=== PATIENT | female | born 1970 | race Caucasian/White ===

== ENCOUNTER 2017-06-02 15:30 | Emergency (ER) | payer OTHER ==
[2017-06-02 15:42] VITALS: RESP 20; TEMP 97.9
[2017-06-02] MEDS ORDERED: RX INFO: IV CONTRAST WAS GIVEN 1 EACH MISC MISCELLANE PRN (16:02)
[2017-06-02 16:18] LABS: Basophils # (A) 0.1 k/uL (0-0.2); Basophils % (A) 1 %; CHCM 33.8; Eosinophils # (A) 0.7 k/uL (0-0.7); Eosinophils % (A) 4 %; HCT 40.9 % (34.0-46.0); HDW 2.52; HGB 13.4 gm/dL (11.4-16.0); Luc # (Auto) 0.44; Luc % (Auto) 3; Lymphocytes # (A) 6.6 k/uL (1.0-4.8); Lymphocytes % (A) 44 %; MCH 30.2 pg (25.0-35.0); MCHC 32.8 g/dL (31.0-37.0); MCV 92.3 fL (80.0-100.0); Mean Platelet Volume 6.9; Monocytes # (A) 0.8 k/uL (0-1.0); Monocytes % (A) 5 %; Neutrophils # (A) 6.6 k/uL (1.3-7.7); Neutrophils % (A) 44 %; RBC 4.43 m/uL (3.80-5.40); RDW 14.2 % (11.5-15.5); WBC 15.2 k/uL (3.8-10.6); WBC (Perox) 14.95
--- NOTE | 2017-06-02 16:19 | ED ---
Syncope HPI - General Chief Complaint: Syncope Stated Complaint: NAUSEA, POST OP LEFT SHOULDER INJURY Source: EMS Mode of arrival: EMS Limitations: no limitations - History of Present Illness Initial Comments: Patient is a 47 year old female who presents for evaluation for questionable syncopal episode, nausea, vomiting, dizziness and weakness. Past medical history as below. Patient had a rotator cuff procedure this past Saturday with Dr. Irving in an out-patient surgical center. Stated that the surgery went well. She's been taking [place] one to 2 tablets every 6 hours as need for pain. On Saturday night she did well. She slept well overnight. Saturday she stated that she was doing okay. But around 1 PM was more tired and was resting throughout the day. She is taking antibiotics, full 325 mg aspirin and the O'[place]on as prescribed. Today she seems a little bit more groggy than usual. She stated that she felt dizzy and lightheaded. Seem to be a little off balance. This afternoon she slumped over and then straightened out. ? convulsions per the pt's . No history of seizures in the past. EMS was called and they transported her to our facility for further evaluation. She has no history of blood clots or PE's. Was cleared prior to surgery. States that she is nauseous right now and had a couple episodes of emesis. Currently denies fevers , shortness of breath, cough, chest pain, diarrhea, pain or burning with urination. - Related Data Home Medications Medication Instructions Recorded Confirmed Aspirin EC [Ecotrin] 325 mg PO DAILY 06/02/17 06/02/17 Cetirizine HCl [Zyrtec] 10 mg PO HS 06/02/17 06/02/17 Doxycycline Hyclate [Vibramycin] 100 mg PO Q12H 06/02/17 06/02/17 Fenofibrate 160 mg PO HS 06/02/17 06/02/17 HYDROcodone/APAP 7.5-325MG [[place] 1 tab PO Q4H PRN 06/02/17 06/02/17 7.5-325] HYDROcodone/APAP 7.5-325MG [[place] 2 tab PO Q4H PRN 06/02/17 06/02/17 7.5-325] Allergies Allergy/AdvReac Type Severity Reaction Status Date / Time Sulfa (Sulfonamide Allergy Rash/Hives/ Verified 06/02/17 16:07 Antibiotics) Swelling Review of Systems ROS Statement: Those systems with pertinent positive or pertinent negative responses have been documented in the HPI. ROS Other: All systems not noted in ROS Statement are negative. Past Medical History Past Medical History: No Reported History History of Any Multi-Drug Resistant Organisms: None Reported Past Surgical History: Orthopedic Surgery Additional Past Surgical History / Comment(s): left shoulder Past Psychological History: No Psychological Hx Reported Smoking Status: Never smoker Past Alcohol Use History: None Reported General Exam Limitations: no limitations General appearance: alert, in no apparent distress, other (Appears sleepy.) Head exam: Present: atraumatic, normocephalic, normal inspection Eye exam: Present: normal appearance, PERRL, EOMI. Absent: scleral icterus, conjunctival injection, periorbital swelling ENT exam: Present: normal exam, mucous membranes moist, other (Moist mucous membranes) Neck exam: Present: normal inspection. Absent: tenderness, meningismus, lymphadenopathy Respiratory exam: Present: normal lung sounds bilaterally, other (Breath sounds bilaterally are equal. No wheezes rales or rhonchi.). Absent: respiratory distress, wheezes, rales, rhonchi, stridor Cardiovascular Exam: Present: regular rate, normal rhythm, normal heart sounds, other (Normal S1 and S2. No murmurs. Distal pulses intact. Warm extremities.) . Absent: systolic murmur, diastolic murmur, rubs, gallop, clicks GI/Abdominal exam: Present: soft, normal bowel sounds, other (Abdomen is soft and nontender. Negative Irving sign. No peritoneal signs.). Absent: distended , tenderness, guarding, rebound, rigid Extremities exam: Present: normal inspection, full ROM, normal capillary refill , other (Evidence of surgical changes to the left shoulder. No cellulitis or swelling. Distal pulses intact. Sensation intact.). Absent: tenderness, pedal edema, joint swelling, calf tenderness Back exam: Present: normal inspection Neurological exam: Present: alert, oriented X3, CN II-XII intact, other (Alert and oriented 3. Cranial nerves II through XII grossly intact without focal neurological deficits. Moves all 4 extremity is.) Psychiatric exam: Present: normal affect, normal mood Skin exam: Present: warm, dry, intact, normal color. Absent: rash Course Vital Signs 06/02/17 06/02/17 06/02/17 15:33 15:42 15:43 Temperature 97.9 F Pulse Rate 63 68 Respiratory 20 20 Rate Blood Pressure 123/73 123/73 O2 Sat by Pulse 89 L 98 98 Oximetry 06/02/17 06/02/17 16:44 17:30 Temperature Pulse Rate 67 71 Respiratory 20 20 Rate Blood Pressure 130/74 144/74 O2 Sat by Pulse 100 98 Oximetry Medical Decision Making - Medical Decision Making Patient is a 47 year old female present for evaluation for nausea vomiting, lightheaded/groggy, questional syncopal versus seizure. High risk for pulmonary embolism with recent surgical procedure. She was hypoxic on initial exam at 89% room air. Improved with 2 L nasal cannula. We'll order CTA chest. We'll also order basic labs with a troponin. EKG. CT head. 1558: Normal sinus rhythm. Rate of 62. OH 176. QRS 84. QTc 4:30. Questionable ST changes and V1 to V6. No reciprocal changes. Believe it's due to artifact. No active chest pain at this time. We'll repeat 1606: Repeat EKG revealed sinus bradycardia at a rate of 57. OH 178. QRS 92. QTc 436. No ST changes. 1715: Reevaluated the patient. She states that she is much improved. Removed from oxygen and she is 100% on room air. Reviewed her laboratory studies. Leukocytosis at 15,000. Mild DENIS. Respiratory laboratory studies within normal limits. Awaiting urinalysis. CTA of the chest was negative. Did have some atelectasis. No pneumonia. No PE. CT head was also unremarkable. I discussed with the patient. Will await urinalysis. Continue to closely monitor. 1815: Reviewed all laboratory studies and imaging with the patient and family members at bedside. Also recanted the story in its entirety. The patient states that she feels much improved from when she first came in. She has no pulmonary embolism. CT head was unremarkable. She had mild leukocytosis and mild elevation in her BUN and creatinine. No urinary tract infection. The rest of her laboratory studies were within normal limits. HEART Score 2. She states that she feels well enough to go home. At this time, I believe her symptoms were related to narcotics. She stated that she took 10 mg of O'[place]on last night and 10 mg of O'[place]on this morning. She is opiate alex. Her symptoms greatly improved during the course of her ER visit. However I discussed the limitations of our evaluation in the emergency department. Therefore, I offered observation. The patient refused. She states that she is going to see her orthopedic surgeon tomorrow. In the interim, I recommended taking only Tylenol or 2.5 mg O'[place]on every 6-8 hours. She voiced understanding. She will not exceed 4 g of Tylenol. Again she reiterated that she feels comfortable going home. I discussed specific signs and symptoms on when to return to the emergency department for further evaluation. Voiced understanding. Will follow -up with orthopedics tomorrow. - Lab Data Result diagrams: 06/02/17 15:48 06/02/17 15:48 Lab Results 06/02/17 06/02/17 06/02/17 Range/Units 15:48 15:48 15:48 WBC 15.2 H (3.8-10.6) k/uL RBC 4.43 (3.80-5.40) m/uL Hgb 13.4 (11.4-16.0) gm/dL Hct 40.9 (34.0-46.0) % MCV 92.3 (80.0-100.0) fL MCH 30.2 (25.0-35.0) pg MCHC 32.8 (31.0-37.0) g/dL RDW 14.2 (11.5-15.5) % Plt Count 482 H (150-450) k/uL Neutrophils % 44 % Lymphocytes % 44 % Monocytes % 5 % Eosinophils % 4 % Basophils % 1 % Neutrophils # 6.6 (1.3-7.7) k/uL Lymphocytes # 6.6 H (1.0-4.8) k/uL Monocytes # 0.8 (0-1.0) k/uL Eosinophils # 0.7 (0-0.7) k/uL Basophils # 0.1 (0-0.2) k/uL Sodium 142 (137-145) mmol/L Potassium 3.9 (3.5-5.1) mmol/L Chloride 104 (98-107) mmol/L Carbon Dioxide 27 (22-30) mmol/L Anion Gap 11 mmol/L BUN 21 H (7-17) mg/dL Creatinine 1.10 H (0.52-1.04) mg/dL Est GFR (MDRD) Af Amer >60 (>60 ml/min/1.73 sqM) Est GFR (MDRD) Non-Af 53 (>60 ml/min/1.73 sqM) Glucose 124 H (74-99) mg/dL Calcium 9.6 (8.4-10.2) mg/dL Total Bilirubin 0.2 (0.2-1.3) mg/dL AST 31 (14-36) U/L ALT 56 H (9-52) U/L Alkaline Phosphatase 43 (38-126) U/L Troponin I (0.000-0.034) ng/mL Total Protein 6.6 (6.3-8.2) g/dL Albumin 3.9 (3.5-5.0) g/dL Lipase 71 (23-300) U/L Urine Color Urine Appearance (Clear) Urine pH (5.0-8.0) Ur Specific [place] (1.001-1.035) Urine Protein (Negative) Urine Glucose (UA) (Negative) Urine Ketones (Negative) Urine Blood (Negative) Urine Nitrite (Negative) Urine Bilirubin (Negative) Urine Urobilinogen (<2.0) mg/dL Ur Leukocyte Esterase (Negative) 06/02/17 06/02/17 Range/Units 15:48 17:18 WBC (3.8-10.6) k/uL RBC (3.80-5.40) m/uL Hgb (11.4-16.0) gm/dL Hct (34.0-46.0) % MCV (80.0-100.0) fL MCH (25.0-35.0) pg MCHC (31.0-37.0) g/dL RDW (11.5-15.5) % Plt Count (150-450) k/uL Neutrophils % % Lymphocytes % % Monocytes % % Eosinophils % % Basophils % % Neutrophils # (1.3-7.7) k/uL Lymphocytes # (1.0-4.8) k/uL Monocytes # (0-1.0) k/uL Eosinophils # (0-0.7) k/uL Basophils # (0-0.2) k/uL Sodium (137-145) mmol/L Potassium (3.5-5.1) mmol/L Chloride (98-107) mmol/L Carbon Dioxide (22-30) mmol/L Anion Gap mmol/L BUN (7-17) mg/dL Creatinine (0.52-1.04) mg/dL Est GFR (MDRD) Af Amer (>60 ml/min/1.73 sqM) Est GFR (MDRD) Non-Af (>60 ml/min/1.73 sqM) Glucose (74-99) mg/dL Calcium (8.4-10.2) mg/dL Total Bilirubin (0.2-1.3) mg/dL AST (14-36) U/L ALT (9-52) U/L Alkaline Phosphatase (38-126) U/L Troponin I <0.012 (0.000-0.034) ng/mL Total Protein (6.3-8.2) g/dL Albumin (3.5-5.0) g/dL Lipase (23-300) U/L Urine Color Yellow Urine Appearance Clear (Clear) Urine pH 6.5 (5.0-8.0) Ur Specific [place] 1.050 H (1.001-1.035) Urine Protein Negative (Negative) Urine Glucose (UA) Negative (Negative) Urine Ketones Negative (Negative) Urine Blood Negative (Negative) Urine Nitrite Negative (Negative) Urine Bilirubin Negative (Negative) Urine Urobilinogen <2.0 (<2.0) mg/dL Ur Leukocyte Esterase Negative (Negative) Disposition Clinical Impression: Nausea and vomiting, Confusion, DENIS (acute kidney injury), Gallstone Disposition: HOME SELF-CARE Condition: Good Instructions: Acute Nausea and Vomiting (ED), Altered Mental Status (ED) Referrals: Nonstaff,Physician [Primary Care Provider] - 1-2 days Marie Aviles MD [REFERRING] - 1-2 days Miguel Ángel Irving MD [STAFF PHYSICIAN] - 1-2 days
[2017-06-02 16:30] LABS: ALT 56 U/L (9-52); AST 31 U/L (14-36); Alkaline Phosphatase 43 U/L (38-126); Anion Gap 11 mmol/L; Blood Urea Nitrogen 21 mg/dL (7-17); Calcium 9.6 mg/dL (8.4-10.2); Carbon Dioxide 27 mmol/L (22-30); Chloride 104 mmol/L (98-107); Glucose 124 mg/dL (74-99); Non-African American GFR(MDRD) 53 (>60 ml/min/1.73 sqM); Potassium 3.9 mmol/L (3.5-5.1); Sodium 142 mmol/L (137-145); Total Bilirubin 0.2 mg/dL (0.2-1.3); Total Protein 6.6 g/dL (6.3-8.2)
--- NOTE | 2017-06-02 16:47 | CT ---
EXAMINATION TYPE: CT brain wo con DATE OF EXAM: 06/02/2017 COMPARISON: NONE HISTORY: Dizziness and nausea. Post op left shoulder sx. CT DLP: 926.5 mGycm. Automated Exposure Control for Dose Reduction was Utilized. TECHNIQUE: CT scan of the head is performed without contrast. FINDINGS: Ventricles and sulci appear normal. There is no mass effect nor midline shift. There is no sign of intracranial hemorrhage. The calvarium is intact. IMPRESSION: Negative head CT scan.
--- NOTE | 2017-06-02 16:49 | CT ---
EXAMINATION TYPE: CT angio chest DATE OF EXAM: 06/02/2017 4:43 PM COMPARISON: NONE HISTORY: Nausea and dizziness. Post op left shoulder sx. CT DLP: 372.3 mGycm Automated exposure control for dose reduction was used. CONTRAST: CTA scan of the thorax is performed with IV Contrast, patient injected with 70 mL of Omnipaque 350, p ulmonary embolism protocol. There are 3-D post processed images.. FINDINGS: The lungs are clear of consolidation. There is minimal atelectasis at the lung bases. There is no ple ural effusion. Heart size is normal. There is no pericardial effusion. There is no evidence of pulmon samantha mass. Thoracic aorta appears normal. There is no evidence of mediastinal adenopathy. There are no hilar mas ses. There are no filling defects in the pulmonary arteries. The bony thorax is intact. IMPRESSION: NO EVIDENCE OF PULMONARY EMBOLISM. MILD ATELECTASIS AT THE LUNG BASES. Calcified gallstone is noted.
[2017-06-02 17:54] LABS: Appearance,Urine Clear (Clear); Bilirubin,Urine Negative (Negative); Glucose,Urine (UA) Negative (Negative); Ketones,Urine Negative (Negative); Leukocyte Esterase,Urine Negative (Negative); Nitrite,Urine Negative (Negative); PH, Urine 6.5 (5.0-8.0); Protein,Urine Negative (Negative); UA Billing (MACRO vs. MICRO) CHEM; Urobilinogen,Urine <2.0 mg/dL (<2.0)
[2017-06-02 18:48] VITALS: BP 128/71; PULSE 69
== END 2017-06-02 18:59 | disposition home or self-care (01) ==
LOC: EC 15:30
DX: K80.80 Other cholelithiasis without obstruction (principal); R11.2 Nausea with vomiting, unspecified; R41.0 Disorientation, unspecified; N17.9 Acute kidney failure, unspecified; R42 Dizziness and giddiness; R53.1 Weakness; Z79.82 Long term (current) use of aspirin; Z79.899 Other long term (current) drug therapy; Z88.2 Allergy status to sulfonamides
CPT/HCPCS: 36415; 93005; 80053; 83690; 84484; 85025; 81003; 70450; 71275; 99285; Q9967

== ENCOUNTER → 2017-12-04 | Outpatient (CLI) | payer OTHER ==
--- NOTE | 2017-12-04 15:49 | XR ---
EXAMINATION TYPE: XR chest 2V DATE OF EXAM: 12/04/2017 COMPARISON: NONE HISTORY: Mitral valve prolapse with history of syncope. TECHNIQUE: Frontal and lateral views of the chest are obtained. FINDINGS: There is no focal air space opacity, pleural effusion, or pneumothorax seen. The cardiac silhouette size is within normal limits. The osseous structures are intact. IMPRESSION: No acute cardiopulmonary process.
== END | disposition home or self-care (01) ==
LOC: RADXRMAIN 15:29
PROVIDERS: ATTEND Family Medicine
DX: R06.09 Other forms of dyspnea (principal)
CPT/HCPCS: 71046

== ENCOUNTER → 2017-12-16 | Outpatient (CLI) | payer OTHER ==
--- NOTE | 2017-12-17 11:13 | ECHOF ---
Referral Reason:R42 dizziness, R55 Syncope MEASUREMENTS -------- HEIGHT: 167.6 cm WEIGHT: 81.2 kg BP: 167/77 RVIDd: 2.8 cm (< 3.3) IVSd: 1.3 cm (0.6 - 1.1) LVIDd: 3.5 cm (3.9 - 5.3) LVPWd: 1.3 cm (0.6 - 1.1) IVSs: 1.6 cm LVIDs: 2.1 cm LVPWs: 1.7 cm LAESV Index (A-L): 32.47 ml/m Ao Diam: 2.9 cm (2.0 - 3.7) AV Cusp: 1.8 cm (1.5 - 2.6) LA Diam: 2.9 cm (2.7 - 3.8) MV EXCURSION: 12.148 mm (> 18.000) MV EF SLOPE: 127 mm/s (70 - 150) MV E Barrett: 1.03 m/s MV DecT: 236 ms MV A Barrett: 0.64 m/s MV E/A Ratio: 1.62 RAP: 5.00 mmHg RVSP: 12.32 mmHg FINDINGS -------- Sinus rhythm. This was a technically good study. The left ventricular size is normal. There is mild concentric left ventricular hypertrophy. Overa ll left ventricular systolic function is normal with, an EF between 55 - 60 %. The right ventricle is normal in size and function. LA is midly dilated 29-33ml/m2. The right atrium is normal in size. The aortic valve is trileaflet, and appears structurally normal. No aortic stenosis or regurgitation. The mitral valve leaflets are mildly thickened. There is trace mitral regurgitation. Trace tricuspid regurgitation present. Right ventricular systolic pressure is normal at < 35 mmHg. There is no evidence of pulmonary hypertension. Trace/mild (physiologic) pulmonic regurgitation. The aortic root size is normal. Normal inferior vena cava with normal inspiratory collapse consistent with estimated right atrial pre ssure of 5 mmHg. The pericardium is normal. There is no pericardial effusion. CONCLUSIONS -------- 1. Sinus rhythm. 2. This was a technically good study. 3. The left ventricular size is normal. 4. There is mild concentric left ventricular hypertrophy. 5. Overall left ventricular systolic function is normal with, an EF between 55 - 60 %. 6. LA is midly dilated 29-33ml/m2. 7. The aortic valve is trileaflet, and appears structurally normal. No aortic stenosis or regurgitati on. 8. The mitral valve leaflets are mildly thickened. 9. There is trace mitral regurgitation. 10. Trace tricuspid regurgitation present. 11. Right ventricular systolic pressure is normal at < 35 mmHg. 12. There is no evidence of pulmonary hypertension. 13. Trace/mild (physiologic) pulmonic regurgitation. 14. The aortic root size is normal. 15. There is no pericardial effusion. DIRECTOR PERSONAL: Landry Banegas RDCS
== END | disposition home or self-care (01) ==
LOC: RADECHMAIN 15:36
PROVIDERS: ATTEND Family Medicine
DX: I51.7 Cardiomegaly (principal)
CPT/HCPCS: 93306

== ENCOUNTER → 2017-12-24 | Outpatient (CLI) | payer OTHER | END | disposition home or self-care (01) | LOC: RADECHMAIN 11:53 | PROVIDERS: ATTEND Family Medicine | DX: R42 Dizziness and giddiness (principal); R55 Syncope and collapse | CPT/HCPCS: 93225; 93226 ==

== ENCOUNTER → 2018-01-06 | Outpatient (CLI) | payer OTHER ==
--- NOTE | 2018-01-06 15:41 | US ---
EXAMINATION TYPE: US kidneys/renal and bladder DATE OF EXAM: 01/06/2018 COMPARISON: NONE CLINICAL HISTORY: N18.3 CHR KIDNEY DISEASE STAGE 3. EXAM MEASUREMENTS: Right Kidney: 10.3 x 4.8 x 5.5 cm Left Kidney: 11.4 x 6.2 x 6.3 cm Right Kidney: wnl Left Kidney: wnl Bladder: wnl Bilateral Jets seen: yes There is no evidence for hydronephrosis at this point in time. No nephrolithiasis is seen. No thad s are identified. The urinary bladder is anechoic. Bilateral ureteral jets are seen. IMPRESSION: No evidence of hydronephrosis, nephrolithiasis or sonographic sequela of medical renal disease
== END | disposition home or self-care (01) ==
LOC: RADUSWWP 14:47
PROVIDERS: ATTEND Surgery
DX: N18.3 Chronic kidney disease, stage 3 (moderate) (principal)
CPT/HCPCS: 76770

== ENCOUNTER → 2018-01-06 | Outpatient (CLI) | payer OTHER ==
[2018-01-06 16:25] LABS: Calcium 10.3 mg/dL (8.4-10.2); Potassium 4.5 mmol/L (3.5-5.1)
== END | disposition home or self-care (01) ==
LOC: LABWHC1 15:30
PROVIDERS: ATTEND Internal Medicine Interventional Cardiology
DX: R55 Syncope and collapse (principal)
CPT/HCPCS: 36415; 80048

== ENCOUNTER → 2018-11-06 | Outpatient (CLI) | payer OTHER ==
[2018-11-06 10:15] LABS: Basophils # (A) 0.1 k/uL (0-0.2); Basophils % (A) 1 %; Eosinophils # (A) 0.5 k/uL (0-0.7); Eosinophils % (A) 5 %; HCT 43.6 % (34.0-46.0); HGB 14.4 gm/dL (11.4-16.0); Lymphocytes # (A) 2.5 k/uL (1.0-4.8); Lymphocytes % (A) 26 %; MCHC 33.1 g/dL (31.0-37.0); MCV 90.7 fL (80.0-100.0); Mean Platelet Volume 6.4; Monocytes # (A) 0.5 k/uL (0-1.0); Monocytes % (A) 5 %; Neutrophils # (A) 5.8 k/uL (1.3-7.7); Neutrophils % (A) 61 %; Platelet Count 394 k/uL (150-450); RBC 4.81 m/uL (3.80-5.40); RDW 13.4 % (11.5-15.5); WBC 9.5 k/uL (3.8-10.6)
[2018-11-06 16:23] LABS: Vitamin D 25 Hydroxy 29.6 ng/mL (30.0-100.0)
[2018-11-06 16:43] LABS: Albumin 4.6 g/dL (3.80-4.90); Albumin/Globulin Ratio 2.42 (1.20-2.10); Anion Gap 9.5 mmol/L (4.00-12.00); Carbon Dioxide 26.5 mmol/L (21.6-31.8); Globulin 1.9 g/dL (1.6-3.3); LDL Cholesterol,Calculated 125.4 mg/dL (0.0-131.0); Potassium 4.8 mmol/L (3.5-5.5); Total Bilirubin 0.6 mg/dL (0.3-1.2); Total Protein 6.5 g/dL (6.2-8.2); VLDL Calculation 16.6 mg/dL (5.00-40.00)
== END | disposition home or self-care (01) ==
LOC: LABWHC1 09:05
PROVIDERS: ATTEND Family Medicine
DX: E78.1 Pure hyperglyceridemia (principal); E53.8 Deficiency of other specified B group vitamins; R79.89 Other specified abnormal findings of blood chemistry; Z91.09 Other allergy status, other than to drugs and biological substances
CPT/HCPCS: 36415; 80053; 80061; 82306; 82607; 85025

== ENCOUNTER → 2019-05-18 | Outpatient (CLI) | payer OTHER ==
--- NOTE | 2019-05-19 13:21 | MM ---
Reason for exam: screening (asymptomatic). Last mammogram was performed 1 year and 8 months ago. History: Patient is nulliparous. Family history of breast cancer in paternal aunt. Physical Findings: A clinical breast exam by your physician is recommended on an annual basis and results should be correlated with mammographic findings. MG 3D Screening Mammo W/Cad Bilateral CC and MLO view(s) were taken. Prior study comparison: September 24, 2017, mammogram, performed at [facility]. August 03, 2016, mammogram, performed at [facility]. February 10, 2016, mammogram, performed at [facility]. The breast tissue is heterogeneously dense. This may lower the sensitivity of mammography. No suspicious abnormality. No significant changes when compared with prior studies. ASSESSMENT: Negative, BI-RAD 1 RECOMMENDATION: Routine screening mammogram of both breasts in 1 year.
== END | disposition home or self-care (01) ==
LOC: RADMAMWWP 07:10
PROVIDERS: ATTEND Family Medicine
DX: Z12.31 Encounter for screening mammogram for malignant neoplasm of breast (principal)
CPT/HCPCS: 77063; 77067

== ENCOUNTER → 2020-07-19 | Outpatient (CLI) | payer BC ==
--- NOTE | 2020-07-20 10:08 | MM ---
Reason for exam: screening (asymptomatic). Last mammogram was performed 1 year and 2 months ago. History: Patient is nulliparous. Family history of breast cancer in paternal aunt. Physical Findings: A clinical breast exam by your physician is recommended on an annual basis and results should be correlated with mammographic findings. MG 3D Screening Mammo W/Cad Bilateral CC and MLO view(s) were taken. Prior study comparison: May 18, 2019, bilateral MG 3d screening mammo w/cad. September 24, 2017, mammogram, performed at [facility]. The breast tissue is heterogeneously dense. This may lower the sensitivity of mammography. There is chronic nodularity bilaterally. There is no dominant lesion. There is no discrete abnormality. No significant changes when compared with prior studies. ASSESSMENT: Benign, BI-RAD 2 RECOMMENDATION: Routine screening mammogram of both breasts in 1 year.
== END | disposition home or self-care (01) ==
LOC: RADMAMWWP 07:03
PROVIDERS: ATTEND Family Medicine
DX: Z12.31 Encounter for screening mammogram for malignant neoplasm of breast (principal)
CPT/HCPCS: 77063; 77067

== ENCOUNTER 2020-07-23 09:55 | Emergency (ER) | payer BC ==
[2020-07-23 10:10] VITALS: RESP 18; TEMP 98.2
[2020-07-23] MEDS ORDERED: ACET/COD 300 MG/30 MG STARTER PACK 6 TAB BTL PO STA (10:34)
--- NOTE | 2020-07-23 10:57 | ED ---
Upper Extremity HPI - General Chief Complaint: Extremity Injury, Upper Stated Complaint: R shoulder pain Time Seen by Provider: 07/23/20 10:24 Source: patient Mode of arrival: ambulatory Limitations: no limitations - History of Present Illness Initial Comments: 50-year-old female presenting today for chief complaint of right shoulder pain and stiffness. She states that she threw 20 for Last night she states it did not hurt that time she woke up at 2 AM with significant shoulder pain anteriorly. Patient states when she lifts it about shoulder height extending it and then attempts to bring it down she severe pain in the right anterior shoulder. She states that she has a frozen shoulder before but has not this painful. She denies any posterior shoulder pain she states she feels that pain in the joint directly she denies any abdominal pain nausea vomiting chest pain shortness of breath. She states she is positive that this is her shoulder. He stated that it feels stiff. Patient denies any numbness tingling loss of sensation of the extremity. Denies any weakness or swelling of the hand or lower aspect of the extremity. Denies fevers or recent surgical procedures Remaining review of system negative. Upon arrival patient appears nontoxic in no acute distress - Related Data Home Medications Medication Instructions Recorded Confirmed Aspirin EC [Ecotrin] 325 mg PO DAILY 06/02/17 06/02/17 Cetirizine HCl [Zyrtec] 10 mg PO HS 06/02/17 06/02/17 Doxycycline Hyclate [Vibramycin] 100 mg PO Q12H 06/02/17 06/02/17 Fenofibrate 160 mg PO HS 06/02/17 06/02/17 HYDROcodone/APAP 7.5-325MG [[place] 1 tab PO Q4H PRN 06/02/17 06/02/17 7.5-325] HYDROcodone/APAP 7.5-325MG [[place] 2 tab PO Q4H PRN 06/02/17 06/02/17 7.5-325] Allergies Allergy/AdvReac Type Severity Reaction Status Date / Time Penicillins Allergy Rash/Hives Verified 07/23/20 10:07 Sulfa (Sulfonamide Allergy Rash/Hives/ Verified 07/23/20 10:06 Antibiotics) Swelling Review of Systems ROS Statement: Those systems with pertinent positive or pertinent negative responses have been documented in the HPI. ROS Other: All systems not noted in ROS Statement are negative. Past Medical History Past Medical History: GERD/Reflux, Hyperlipidemia History of Any Multi-Drug Resistant Organisms: None Reported Past Surgical History: Orthopedic Surgery Additional Past Surgical History / Comment(s): left shoulder Past Psychological History: No Psychological Hx Reported Smoking Status: Never smoker Past Alcohol Use History: None Reported Past Drug Use History: None Reported General Exam - General Exam Comments Initial Comments: General: The patient is awake and alert, in no distress, and does not appear acutely ill. Eye: Pupils are equal, round and reactive to light, extra-ocular movements are intact. No nystagmus. There is normal conjunctiva bilaterally. No signs of icterus. Cardiovascular: There is a regular rate and rhythm. No murmur, rub or gallop is appreciated. Respiratory: Lungs are clear to auscultation, respirations are non-labored, breath sounds are equal. No wheezes, stridor, rales, or rhonchi. Gastrointestinal: Soft, non-distended, non-tender abdomen, no RUQ tenderness, abdomen without masses or organomegaly noted. There is no rebound or guarding present. Musculoskeletal: Upon inspection of the shoulder there is no acute findings, no swelling warmth or redness. No posterior tenderness there is pain over the right AC joint. Patient able to lift 50% limited right shoulder height and has more pain when she attempts to lower the shoulder. Strength 5/5 at the elbow, wrist and digits. Sensation intact of the right UE. Patient able to make the fingers crossed thumbs-up and oppose the small digit and thumb. radial pulses equal bilaterally 2+. Neurological: A&O x 3. CN II-XII intact grossly, There are no obvious motor or sensory deficits. Coordination appears grossly intact. Speech is normal. Skin: Skin is warm and dry and no rashes or lesions are noted. Psychiatric: Cooperative, appropriate mood & affect, normal judgment. Limitations: no limitations Course Vital Signs 07/23/20 10:07 Temperature 98.2 F Pulse Rate 80 Respiratory 18 Rate Blood Pressure 160/90 O2 Sat by Pulse 97 Oximetry Medical Decision Making - Medical Decision Making 50yo with reproducible right shoulder pain anteriorly, lmited ROM with overhead and most significant pain with lowering the right shoulder. Neurovascularly intact. She does not endorse any chest pain shortness of breath back pain abdominal pain nausea jaw pain. She states she did throw 20 for her cat last night and think this may be an inciting event. Patient appears nontoxic. Admits to fluctuations in kidney function, will avoid NSAIDs, she has lower tolerance for opiods but will try tylenol #3. Patient XR Disposition Clinical Impression: Calcific tendonitis, Right shoulder pain, Stiffness of right shoulder joint, AC (acromioclavicular) arthritis Disposition: HOME SELF-CARE Condition: Good Instructions (If sedation given, give patient instructions): Calcific Tendinitis (ED) Additional Instructions: Please use medication as discussed. Please [facility], sleep with arm in abduction and encourage movement. The sling for comfort. Please return to emergency room if the symptoms increase or worsen or for any other concerns. Is patient prescribed a controlled substance at d/c from ED?: No Referrals: Gretchen Rogel MD [Primary Care Provider] - 1-2 days Miguel Ángel Irving MD [STAFF PHYSICIAN] - 1-2 days Time of Disposition: 11:36
--- NOTE | 2020-07-23 11:28 | XR ---
EXAMINATION TYPE: XR shoulder complete RT DATE OF EXAM: 07/23/2020 CLINICAL HISTORY: Pain. TECHNIQUE: Three views of the right shoulder are obtained. COMPARISON: None. FINDINGS: There is no acute fracture/dislocation evident in the right shoulder. Moderate narrowing a cromioclavicular joint. Distal acromion morphology unremarkable. Glenohumeral joint preserved. Curvi linear calcification near humeral head greater tuberosity could reflect a distal calcific tendinitis of the rotator cuff tendons. The visualized ribs are intact and unremarkable. IMPRESSION: As above.
[2020-07-23 11:53] VITALS: BP 158/87; PULSE 82
== END 2020-07-23 11:53 | disposition home or self-care (01) ==
LOC: EC 09:55
DX: M75.31 Calcific tendinitis of right shoulder (principal); M25.611 Stiffness of right shoulder, not elsewhere classified; M19.011 Primary osteoarthritis, right shoulder; E78.5 Hyperlipidemia, unspecified; Z79.899 Other long term (current) drug therapy; Z88.0 Allergy status to penicillin; Z88.2 Allergy status to sulfonamides; X50.0XXA Overexertion from strenuous movement or load, initial encounter
CPT/HCPCS: 99283

== ENCOUNTER → 2020-07-25 | Outpatient (CLI) | payer BC | END | disposition home or self-care (01) | LOC: LABWHC1 15:18 | PROVIDERS: ATTEND Family Medicine | DX: Z20.828 Contact with and (suspected) exposure to other viral communicable diseases (principal) | CPT/HCPCS: U0003; C9803 ==

== ENCOUNTER 2020-10-10 04:27 | Emergency (ER) | payer BC ==
[2020-10-10] MEDS ORDERED: MORPHINE SULFATE 4 MG/ML SYRINGE IV STA (05:01)
[2020-10-10] MEDS ORDERED: ONDANSETRON 4 MG/2 ML VIAL IVP STA (05:01)
[2020-10-10] MEDS ORDERED: SODIUM CHLORIDE 0.9% 1,000 ML IV STA (05:01)
[2020-10-10] MEDS ORDERED: PANTOPRAZOLE 40 MG/10 ML VIAL IVP STA (05:01)
--- NOTE | 2020-10-10 05:02 | ED ---
Abdominal Pain HPI - General Source: patient, RN notes reviewed, old records reviewed Mode of arrival: ambulatory Limitations: no limitations - History of Present Illness MD Complaint: abdominal pain -: week(s) Location: RUQ, epigastric Radiation: epigastric Migration to: RUQ Severity: moderate Severity scale (1-10): 7 Quality: stabbing, aching Consistency: intermittent Improves With: nothing Worsens With: nothing Associated Symptoms: nausea <Fracisco Barakat - Last Filed: 10/10/20 05:55> <Kenrick Sosa - Last Filed: 10/10/20 09:04> - General Chief Complaint: Abdominal Pain Stated Complaint: abd pain Time Seen by Provider: 10/10/20 04:29 - History of Present Illness Initial Comments: This is a 50-year-old female with no specific medical history coming in with weeks of episodic epigastric and right upper quadrant abdominal pain severe. Does have nausea vomiting some time taking pills. No fevers. No prior surgical history. Symptoms started tonight and became severe. Otherwise no recent travel history or sick contacts recent diarrhea normal bowel movement last night (Fracisco Barakat) - Related Data Home Medications Medication Instructions Recorded Confirmed Fenofibrate 160 mg PO HS 06/02/17 10/10/20 Cholecalciferol [Vitamin D3 (25 1,000 unit PO HS 10/10/20 10/10/20 Mcg = 1000 Iu)] Cyanocobalamin (Vitamin B-12) 1,000 mcg PO HS 10/10/20 10/10/20 [Vitamin B-12] Previous Rx's Medication Instructions Recorded Ondansetron Odt [Zofran Odt] 4 mg PO Q8HR PRN #12 tab 10/10/20 Allergies Allergy/AdvReac Type Severity Reaction Status Date / Time Penicillins Allergy Rash/Hives Verified 10/10/20 06:16 Sulfa (Sulfonamide Allergy Rash/Hives/ Verified 10/10/20 06:16 Antibiotics) Swelling Review of Systems ROS Other: All systems not noted in ROS Statement are negative. <Fracisco Barakat - Last Filed: 10/10/20 05:55> ROS Other: All systems not noted in ROS Statement are negative. <Kenrick Sosa - Last Filed: 12/14/20 09:04> ROS Statement: Those systems with pertinent positive or pertinent negative responses have been documented in the HPI. Past Medical History Past Medical History: Hyperlipidemia History of Any Multi-Drug Resistant Organisms: None Reported Past Surgical History: Orthopedic Surgery Additional Past Surgical History / Comment(s): left shoulder Past Psychological History: No Psychological Hx Reported Smoking Status: Never smoker Past Alcohol Use History: None Reported Past Drug Use History: None Reported <Fracisco Barakat - Last Filed: 10/10/20 05:55> General Exam Limitations: no limitations General appearance: alert, in no apparent distress Head exam: Present: atraumatic, normocephalic, normal inspection Eye exam: Present: normal appearance, PERRL, EOMI. Absent: scleral icterus, conjunctival injection, periorbital swelling ENT exam: Present: normal exam, mucous membranes moist Neck exam: Present: normal inspection. Absent: tenderness, meningismus, l ymphadenopathy Respiratory exam: Present: normal lung sounds bilaterally. Absent: respiratory distress, wheezes, rales, rhonchi, stridor Cardiovascular Exam: Present: regular rate, normal rhythm, normal heart sounds. Absent: systolic murmur, diastolic murmur, rubs, gallop, clicks GI/Abdominal exam: Present: soft, normal bowel sounds. Absent: distended, tenderness, guarding, rebound, rigid Extremities exam: Present: normal inspection, full ROM, normal capillary refill. Absent: tenderness, pedal edema, joint swelling, calf tenderness Back exam: Present: normal inspection Neurological exam: Present: alert, oriented X3, CN II-XII intact Psychiatric exam: Present: normal affect, normal mood Skin exam: Present: warm, dry, intact, normal color. Absent: rash <Fracisco Barakat - Last Filed: 10/10/20 05:55> Course Vital Signs 10/10/20 10/10/20 10/10/20 04:33 05:50 07:20 Temperature 98.2 F 98.1 F 97.6 F Pulse Rate 84 63 61 Respiratory 20 16 16 Rate Blood Pressure 172/112 156/91 129/78 O2 Sat by Pulse 100 100 99 Oximetry Medical Decision Making - Lab Data Result diagrams: 10/10/20 05:08 10/10/20 05:08 <Fracisco Barakat - Last Filed: 10/10/20 05:55> - Lab Data Result diagrams: 10/10/20 05:08 10/10/20 05:08 <Kenrick Sosa - Last Filed: 10/10/20 09:04> - Medical Decision Making Patient was signed out to me by previous physician Dr. Sahu. Briefly, patient is a 50-year-old female presents today with gallbladder symptoms. Plan at sign out was to follow up with pending gallbladder ultrasound. Gallbladder ultrasound shows gallbladder wall thickening with the cholelithiasis. No mention by radiology for pericholecystic fluid. Patient has mild leukocytosis 12.3. Liver enzymes are negative. 9:02 AM. Patient evaluated at bedside. She was notified of her imaging and lab results. Patient feels much better. She denies any abdominal pain at this time. Clinical presentation consistent with symptomatic cholelithiasis. Return parameters discussed. Patient was discharged is given referral to on-call general surgeon. (Kenrick Sosa) - Lab Data Lab Results 10/10/20 10/10/20 10/10/20 Range/Units 05:08 05:08 05:08 WBC 12.3 H (3.8-10.6) k/uL RBC 5.01 (3.80-5.40) m/uL Hgb 14.7 (11.4-16.0) gm/dL Hct 44.4 (34.0-46.0) % MCV 88.8 (80.0-100.0) fL MCH 29.3 (25.0-35.0) pg MCHC 33.0 (31.0-37.0) g/dL RDW 13.5 (11.5-15.5) % Plt Count 473 H (150-450) k/uL MPV 6.9 Neutrophils % 67 % Lymphocytes % 22 % Monocytes % 5 % Eosinophils % 4 % Basophils % 1 % Neutrophils # 8.2 H (1.3-7.7) k/uL Lymphocytes # 2.7 (1.0-4.8) k/uL Monocytes # 0.6 (0-1.0) k/uL Eosinophils # 0.5 (0-0.7) k/uL Basophils # 0.1 (0-0.2) k/uL Sodium 136 L (137-145) mmol/L Potassium 4.2 (3.5-5.1) mmol/L Chloride 102 (98-107) mmol/L Carbon Dioxide 25 (22-30) mmol/L Anion Gap 9 mmol/L BUN 20 H (7-17) mg/dL Creatinine 1.12 H (0.52-1.04) mg/dL Est GFR (CKD-EPI)AfAm 66 (>60 ml/min/1.73 sqM) Est GFR (CKD-EPI)NonAf 57 (>60 ml/min/1.73 sqM) Glucose 126 H (74-99) mg/dL Plasma Lactic Acid Ethan (0.7-2.0) mmol/L Calcium 10.6 H (8.4-10.2) mg/dL Total Bilirubin 0.4 (0.2-1.3) mg/dL AST 23 (14-36) U/L ALT 31 (4-34) U/L Alkaline Phosphatase 44 (38-126) U/L Total Protein 7.8 (6.3-8.2) g/dL Albumin 4.7 (3.5-5.0) g/dL Amylase 51 (30-110) U/L Lipase 142 (23-300) U/L Urine Color Light Yellow Urine Appearance Cloudy H (Clear) Urine pH 7.0 (5.0-8.0) Ur Specific [place] 1.013 (1.001-1.035) Urine Protein Negative (Negative) Urine Glucose (UA) Negative (Negative) Urine Ketones Negative (Negative) Urine Blood Negative (Negative) Urine Nitrite Negative (Negative) Urine Bilirubin Negative (Negative) Urine Urobilinogen <2.0 (<2.0) mg/dL Ur Leukocyte Esterase Negative (Negative) Urine RBC <1 (0-5) /hpf Urine WBC 1 (0-5) /hpf Ur Squamous Epith Cells 1 (0-4) /hpf Amorphous Sediment Rare H (None) /hpf Urine Bacteria Rare H (None) /hpf 10/10/20 Range/Units 05:08 WBC (3.8-10.6) k/uL RBC (3.80-5.40) m/uL Hgb (11.4-16.0) gm/dL Hct (34.0-46.0) % MCV (80.0-100.0) fL MCH (25.0-35.0) pg MCHC (31.0-37.0) g/dL RDW (11.5-15.5) % Plt Count (150-450) k/uL MPV Neutrophils % % Lymphocytes % % Monocytes % % Eosinophils % % Basophils % % Neutrophils # (1.3-7.7) k/uL Lymphocytes # (1.0-4.8) k/uL Monocytes # (0-1.0) k/uL Eosinophils # (0-0.7) k/uL Basophils # (0-0.2) k/uL Sodium (137-145) mmol/L Potassium (3.5-5.1) mmol/L Chloride (98-107) mmol/L Carbon Dioxide (22-30) mmol/L Anion Gap mmol/L BUN (7-17) mg/dL Creatinine (0.52-1.04) mg/dL Est GFR (CKD-EPI)AfAm (>60 ml/min/1.73 sqM) Est GFR (CKD-EPI)NonAf (>60 ml/min/1.73 sqM) Glucose (74-99) mg/dL Plasma Lactic Acid Ethan 1.8 (0.7-2.0) mmol/L Calcium (8.4-10.2) mg/dL Total Bilirubin (0.2-1.3) mg/dL AST (14-36) U/L ALT (4-34) U/L Alkaline Phosphatase (38-126) U/L Total Protein (6.3-8.2) g/dL Albumin (3.5-5.0) g/dL Amylase (30-110) U/L Lipase (23-300) U/L Urine Color Urine Appearance (Clear) Urine pH (5.0-8.0) Ur Specific [place] (1.001-1.035) Urine Protein (Negative) Urine Glucose (UA) (Negative) Urine Ketones (Negative) Urine Blood (Negative) Urine Nitrite (Negative) Urine Bilirubin (Negative) Urine Urobilinogen (<2.0) mg/dL Ur Leukocyte Esterase (Negative) Urine RBC (0-5) /hpf Urine WBC (0-5) /hpf Ur Squamous Epith Cells (0-4) /hpf Amorphous Sediment (None) /hpf Urine Bacteria (None) /hpf Disposition <Fracisco Barakat - Last Filed: 10/10/20 05:55> Is patient prescribed a controlled substance at d/c from ED?: No Time of Disposition: 09:04 <Kenrick Sosa - Last Filed: 10/10/20 09:04> Clinical Impression: Symptomatic cholelithiasis Disposition: HOME SELF-CARE Condition: Good Instructions (If sedation given, give patient instructions): Gallstones (ED), Biliary Colic (ED) Prescriptions: Ondansetron Odt [Zofran Odt] 4 mg PO Q8HR PRN #12 tab PRN Reason: Nausea Referrals: Gretchen Rogel MD [Primary Care Provider] - 1-2 days Darryl Pompa MD [STAFF PHYSICIAN] - 1-2 days
[2020-10-10 05:16] LABS: Basophils # (A) 0.1 k/uL (0-0.2); Basophils % (A) 1 %; Eosinophils # (A) 0.5 k/uL (0-0.7); Eosinophils % (A) 4 %; HCT 44.4 % (34.0-46.0); HGB 14.7 gm/dL (11.4-16.0); Lymphocytes # (A) 2.7 k/uL (1.0-4.8); Lymphocytes % (A) 22 %; MCH 29.3 pg (25.0-35.0); MCV 88.8 fL (80.0-100.0); Mean Platelet Volume 6.9; Monocytes # (A) 0.6 k/uL (0-1.0); Monocytes % (A) 5 %; Neutrophils # (A) 8.2 k/uL (1.3-7.7); Neutrophils % (A) 67 %; Platelet Count 473 k/uL (150-450); RBC 5.01 m/uL (3.80-5.40); RDW 13.5 % (11.5-15.5); WBC 12.3 k/uL (3.8-10.6)
[2020-10-10 05:22] LABS: Amorphous Sediment,Urine Rare /hpf; Appearance,Urine Cloudy (Clear); Bacteria,Urine Rare /hpf; Bilirubin,Urine Negative (Negative); Blood,Urine Negative (Negative); Color,Urine Light Yellow; Glucose,Urine (UA) Negative (Negative); Ketones,Urine Negative (Negative); Leukocyte Esterase,Urine Negative (Negative); Nitrite,Urine Negative (Negative); Protein,Urine Negative (Negative); RBC,Urine <1 /hpf (0-5); Specific Gravity,Urine 1.013 (1.001-1.035); Squamous Epithelial Cell,Urine 1 /hpf (0-4); Urobilinogen,Urine <2.0 mg/dL (<2.0); WBC,Urine 1 /hpf (0-5)
[2020-10-10 05:28] LABS: Albumin 4.7 g/dL (3.5-5.0); Calcium 10.6 mg/dL (8.4-10.2); Potassium 4.2 mmol/L (3.5-5.1); Total Bilirubin 0.4 mg/dL (0.2-1.3); Total Protein 7.8 g/dL (6.3-8.2)
[2020-10-10] MEDS ORDERED: KETOROLAC 15 MG/ML 1 ML VIAL IVP STA (05:54)
--- NOTE | 2020-10-10 06:18 | CT ---
EXAM: CT Abdomen and Pelvis With Intravenous Contrast CLINICAL HISTORY: Abdominal pain. TECHNIQUE: Axial computed tomography images of the abdomen and pelvis with intravenous contrast. CTDI is 21.1 mGy and DLP is 943.9 mGy-cm. This CT exam was performed using one or more of the following dose reduction techniques: automated exposure control, adjustment of the mA and/or kV according to patient size, and/or use of iterative reconstruction technique. COMPARISON: No relevant prior studies available. FINDINGS: Lung bases: Unremarkable. No mass. No consolidation. ABDOMEN: Liver: Unremarkable. No mass. Gallbladder and bile ducts: Multiple large gallstones. No pericholecystic fluid or edema. Pancreas: Unremarkable. No mass. No ductal dilation. Spleen: Unremarkable. No splenomegaly. Adrenals: Unremarkable. No mass. Kidneys and ureters: Unremarkable. No solid mass. No hydronephrosis. Stomach and bowel: Unremarkable. No obstruction. No mucosal thickening. PELVIS: Appendix: No findings to suggest acute appendicitis. Bladder: Unremarkable. No mass. Reproductive: Probable left ovarian cyst measuring approximately 2.5 cm. ABDOMEN and PELVIS: Intraperitoneal space: Unremarkable. No free air. No significant fluid collection. Bones/joints: No acute fracture. No dislocation. Soft tissues: Small ventral hernia at the umbilicus containing only fat. Vasculature: Unremarkable. No abdominal aortic aneurysm. Lymph nodes: Unremarkable. No enlarged lymph nodes. IMPRESSION: Multiple large gallstones. Probable left ovarian cyst.
--- NOTE | 2020-10-10 08:01 | US ---
EXAMINATION TYPE: US gallbladder DATE OF EXAM: 10/10/2020 COMPARISON: NONE CLINICAL HISTORY: pain. abdominal pain, vomiting EXAM MEASUREMENTS: Liver Length: 14.9 cm Gallbladder Wall: 0.7 cm CBD: 0.4 cm Right Kidney: 10.6 x 3.8 x 4.3 cm Pancreas: visualized portions appear wnl Liver: wnl Gallbladder: multiple stones, thickened GB wall Evidence for sonographic Irving's sign: yes CBD: limited evaluation Right Kidney: no evidence of hydronephrosis or mass IMPRESSION: Gallbladder wall thickening with the cholelithiasis.
[2020-10-10 09:25] VITALS: BP 107/72; PULSE 67; RESP 18; TEMP 97.8
== END 2020-10-10 09:25 | disposition home or self-care (01) ==
LOC: EC 04:27
DX: K80.20 Calculus of gallbladder without cholecystitis without obstruction (principal); E78.5 Hyperlipidemia, unspecified; Z79.899 Other long term (current) drug therapy; Z88.0 Allergy status to penicillin; Z88.2 Allergy status to sulfonamides
CPT/HCPCS: 36415; 80053; 82150; 83605; 83690; 85025; 81001; 76705; 74177; 99285; 96374; 96375 ×3; 96361; J2270; J2405; J1885; C9113; Q9967

== ENCOUNTER 2021-01-06 22:32 | Emergency (ER) | payer BC ==
[2021-01-06 22:39] VITALS: TEMP 98.4
[2021-01-06] MEDS ORDERED: KETOROLAC 15 MG/ML 1 ML VIAL IVP STA (23:02)
[2021-01-06] MEDS ORDERED: ONDANSETRON 4 MG/2 ML VIAL IVP STA (23:02)
[2021-01-06] MEDS ORDERED: SODIUM CHLORIDE 0.9% 1,000 ML IV STA (23:02)
[2021-01-06 23:33] LABS: Basophils # (A) 0.1 k/uL (0-0.2); Basophils % (A) 1 %; Eosinophils # (A) 0.4 k/uL (0-0.7); Eosinophils % (A) 4 %; HCT 44.3 % (34.0-46.0); HGB 15.1 gm/dL (11.4-16.0); Lymphocytes # (A) 3.4 k/uL (1.0-4.8); Lymphocytes % (A) 33 %; MCH 30.6 pg (25.0-35.0); MCHC 34.1 g/dL (31.0-37.0); MCV 89.7 fL (80.0-100.0); Mean Platelet Volume 6.7; Monocytes # (A) 0.7 k/uL (0-1.0); Monocytes % (A) 7 %; Neutrophils # (A) 5.5 k/uL (1.3-7.7); Neutrophils % (A) 54 %; Platelet Count 436 k/uL (150-450); RBC 4.94 m/uL (3.80-5.40); WBC 10.3 k/uL (3.8-10.6)
--- NOTE | 2021-01-06 23:34 | ED ---
Abdominal Pain HPI - General Chief Complaint: Abdominal Pain Stated Complaint: Abdominal pain Time Seen by Provider: 01/06/21 22:42 Source: patient, family Mode of arrival: ambulatory Limitations: no limitations - History of Present Illness Initial Comments: Patient is a 50-year-old female presenting to the emergency Department with complaints of pain in the upper right side of her abdomen and increasing over the past 2 days. Patient states she has history of gallstones, she does have a scheduled cholecystectomy at [facility] in a few weeks. Patient states the 2 days she's had been having increase in pain, nausea and vomiting. Patient states she cannot seem to get the pain to calm down, there is some radiation to her right shoulder and in the right side of the back. She denies any fever or chills. No diarrhea, no chest pain or shortness of breath. She was able to eat dinner tonight. She denies history of any abdominal surgeries at this time. She denies dysuria. She has no further complaints at this time. Upon arrival to the ER her vital signs are stable. - Related Data Home Medications Medication Instructions Recorded Confirmed Fenofibrate 160 mg PO HS 06/02/17 10/10/20 Cholecalciferol [Vitamin D3 (25 1,000 unit PO HS 10/10/20 10/10/20 Mcg = 1000 Iu)] Cyanocobalamin (Vitamin B-12) 1,000 mcg PO HS 10/10/20 10/10/20 [Vitamin B-12] Previous Rx's Medication Instructions Recorded Ondansetron Odt [Zofran Odt] 4 mg PO Q8HR PRN #12 tab 10/10/20 Ketorolac [Toradol] 10 mg PO Q8HR #8 tab 01/07/21 Ondansetron Odt [Zofran Odt] 4 mg PO Q8HR PRN #10 tab 01/07/21 Allergies Allergy/AdvReac Type Severity Reaction Status Date / Time Penicillins Allergy Rash/Hives Verified 01/06/21 22:39 Sulfa (Sulfonamide Allergy Rash/Hives/ Verified 01/06/21 22:39 Antibiotics) Swelling Review of Systems ROS Statement: Those systems with pertinent positive or pertinent negative responses have been documented in the HPI. ROS Other: All systems not noted in ROS Statement are negative. Past Medical History Past Medical History: Hyperlipidemia History of Any Multi-Drug Resistant Organisms: None Reported Past Surgical History: Orthopedic Surgery Additional Past Surgical History / Comment(s): left shoulder Past Psychological History: No Psychological Hx Reported Smoking Status: Never smoker Past Alcohol Use History: None Reported Past Drug Use History: None Reported General Exam - General Exam Comments Initial Comments: GENERAL: Patient is well-developed and well-nourished. Patient is nontoxic and in no acute distress. HEAD: Atraumatic, normocephalic. EYES: Pupils equal round and reactive to light, extraocular movements intact, sclera anicteric, conjunctiva are normal. Eyelids were unremarkable. ENT: TMs normal, nares patent, oropharynx clear without exudates. Moist mucous membranes. NECK: Normal range of motion, supple without lymphadenopathy or JVD. LUNGS: Unlabored respirations. Breath sounds clear to auscultation bilaterally and equal. No wheezes rales or rhonchi. HEART: Regular rate and rhythm without murmurs, rubs or gallops. ABDOMEN: Soft, tender to palpation in epigastric, right upper quadrant, positive Irving sign, normoactive bowel sounds. No masses appreciated. : Deferred MUSCULOSKELETAL: Normal extremities with adequate strength and normal range of motion, no pitting or edema. No clubbing or cyanosis. NEUROLOGICAL: Patient is alert and oriented x 3. Motor and sensory are also intact. Cranial nerves II through XII grossly intact. Symmetrical smile. Normal speech, normal gait. PSYCH: Normal mood, normal affect. SKIN: Warm, Dry, normal turgor, no rashes or lesions noted. Limitations: no limitations Course Vital Signs 01/06/21 01/07/21 22:36 00:10 Temperature 98.4 F Pulse Rate 84 63 Respiratory 18 20 Rate Blood Pressure 142/89 139/79 O2 Sat by Pulse 98 100 Oximetry Medical Decision Making - Medical Decision Making Patient is a 50-year-old female here with right upper quadrant pain increasing over the past 2 days as well as nausea. She does have history of gallstones, she has a scheduled appointment for cholecystectomy at [facility] in a couple weeks. Her vital signs are stable. Patient's labs have a normal white count at 10.3, kidney function a stable creatinine at 1.24, lactic acid is 3.0, bilirubin is normal, liver enzymes are stable, lipase is 160. Urine is normal. Ultrasound shows evidence for acute and chronic cholecystitis. Patient was given fluids, Toradol and Zofran and does report improvement in her symptoms. I recommended to patient to be admitted for acute cholecystitis under surgery. 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 She wishes to go to [facility] tomorrow so she can have the surgery by the surgeon she's already been seeing. I discussed the risks with the patient including , patient wishes to be discharged. Patient will sign AMA. Strict return parameters were discussed with the patient and she verbalized understanding. Koby brantley discussed with Dr. Camilo. - Lab Data Result diagrams: 01/06/21 23:18 01/06/21 23:18 Lab Results 01/06/21 01/06/21 01/06/21 Range/Units 23:18 23:18 23:18 WBC 10.3 (3.8-10.6) k/uL RBC 4.94 (3.80-5.40) m/uL Hgb 15.1 (11.4-16.0) gm/dL Hct 44.3 (34.0-46.0) % MCV 89.7 (80.0-100.0) fL MCH 30.6 (25.0-35.0) pg MCHC 34.1 (31.0-37.0) g/dL RDW 13.0 (11.5-15.5) % Plt Count 436 (150-450) k/uL MPV 6.7 Neutrophils % 54 % Lymphocytes % 33 % Monocytes % 7 % Eosinophils % 4 % Basophils % 1 % Neutrophils # 5.5 (1.3-7.7) k/uL Lymphocytes # 3.4 (1.0-4.8) k/uL Monocytes # 0.7 (0-1.0) k/uL Eosinophils # 0.4 (0-0.7) k/uL Basophils # 0.1 (0-0.2) k/uL PT 10.5 (9.0-12.0) sec INR 1.0 (<1.2) APTT 23.1 (22.0-30.0) sec Sodium (137-145) mmol/L Potassium (3.5-5.1) mmol/L Chloride (98-107) mmol/L Carbon Dioxide (22-30) mmol/L Anion Gap mmol/L BUN (7-17) mg/dL Creatinine (0.52-1.04) mg/dL Est GFR (CKD-EPI)AfAm (>60 ml/min/1.73 sqM) Est GFR (CKD-EPI)NonAf (>60 ml/min/1.73 sqM) Glucose (74-99) mg/dL Lactic Ac Sepsis Rflx Plasma Lactic Acid Ethan (0.7-2.0) mmol/L Calcium (8.4-10.2) mg/dL Total Bilirubin (0.2-1.3) mg/dL AST (14-36) U/L ALT (4-34) U/L Alkaline Phosphatase (38-126) U/L Total Protein (6.3-8.2) g/dL Albumin (3.5-5.0) g/dL Amylase (30-110) U/L Lipase (23-300) U/L Urine Color Yellow Urine Appearance Cloudy H (Clear) Urine pH 6.0 (5.0-8.0) Ur Specific [place] 1.018 (1.001-1.035) Urine Protein Negative (Negative) Urine Glucose (UA) Negative (Negative) Urine Ketones Negative (Negative) Urine Blood Negative (Negative) Urine Nitrite Negative (Negative) Urine Bilirubin Negative (Negative) Urine Urobilinogen <2.0 (<2.0) mg/dL Ur Leukocyte Esterase Negative (Negative) Urine WBC 2 (0-5) /hpf Ur Squamous Epith Cells 1 (0-4) /hpf Urine Bacteria Rare H (None) /hpf Urine Mucus Rare H (None) /hpf 01/06/21 01/06/21 01/06/21 Range/Units 23:18 23:18 23:43 WBC (3.8-10.6) k/uL RBC (3.80-5.40) m/uL Hgb (11.4-16.0) gm/dL Hct (34.0-46.0) % MCV (80.0-100.0) fL MCH (25.0-35.0) pg MCHC (31.0-37.0) g/dL RDW (11.5-15.5) % Plt Count (150-450) k/uL MPV Neutrophils % % Lymphocytes % % Monocytes % % Eosinophils % % Basophils % % Neutrophils # (1.3-7.7) k/uL Lymphocytes # (1.0-4.8) k/uL Monocytes # (0-1.0) k/uL Eosinophils # (0-0.7) k/uL Basophils # (0-0.2) k/uL PT (9.0-12.0) sec INR (<1.2) APTT (22.0-30.0) sec Sodium 139 (137-145) mmol/L Potassium 4.3 (3.5-5.1) mmol/L Chloride 100 (98-107) mmol/L Carbon Dioxide 27 (22-30) mmol/L Anion Gap 12 mmol/L BUN 18 H (7-17) mg/dL Creatinine 1.24 H (0.52-1.04) mg/dL Est GFR (CKD-EPI)AfAm 59 (>60 ml/min/1.73 sqM) Est GFR (CKD-EPI)NonAf 51 (>60 ml/min/1.73 sqM) Glucose 125 H (74-99) mg/dL Lactic Ac Sepsis Rflx Y Plasma Lactic Acid Ethan 3.0 H* (0.7-2.0) mmol/L Calcium 10.6 H (8.4-10.2) mg/dL Total Bilirubin 0.5 (0.2-1.3) mg/dL AST 28 (14-36) U/L ALT 40 H (4-34) U/L Alkaline Phosphatase 49 (38-126) U/L Total Protein 7.9 (6.3-8.2) g/dL Albumin 4.9 (3.5-5.0) g/dL Amylase 53 (30-110) U/L Lipase 161 (23-300) U/L Urine Color Urine Appearance (Clear) Urine pH (5.0-8.0) Ur Specific [place] (1.001-1.035) Urine Protein (Negative) Urine Glucose (UA) (Negative) Urine Ketones (Negative) Urine Blood (Negative) Urine Nitrite (Negative) Urine Bilirubin (Negative) Urine Urobilinogen (<2.0) mg/dL Ur Leukocyte Esterase (Negative) Urine WBC (0-5) /hpf Ur Squamous Epith Cells (0-4) /hpf Urine Bacteria (None) /hpf Urine Mucus (None) /hpf - EKG Data EKG Comments: Normal sinus rhythm, normal ECG, no signs of acute ischemia. Ventricular rate 61, RI interval 188, QTC 428. Disposition Clinical Impression: Right upper quadrant abdominal pain, Acute and chronic cholecystitis Disposition: Left Against Medical Advice Condition: Stable Instructions (If sedation given, give patient instructions): Cholecystitis (ED) Additional Instructions: Please return to the Emergency Department if symptoms worsen or any other concerns. May take Zofran for any nausea, Toradol for severe pain, Tylenol for mild to moderate pain. Please follow-up with your doctor tomorrow. Prescriptions: Ketorolac [Toradol] 10 mg PO Q8HR #8 tab Ondansetron Odt [Zofran Odt] 4 mg PO Q8HR PRN #10 tab PRN Reason: Nausea Is patient prescribed a controlled substance at d/c from ED?: No Referrals: Gretchen Rogel MD [Primary Care Provider] - 1-2 days
[2021-01-06 23:35] LABS: Appearance,Urine Cloudy (Clear); Bacteria,Urine Rare /hpf; Bilirubin,Urine Negative (Negative); Blood,Urine Negative (Negative); Color,Urine Yellow; Glucose,Urine (UA) Negative (Negative); Ketones,Urine Negative (Negative); Leukocyte Esterase,Urine Negative (Negative); Mucus,Urine Rare /hpf; Nitrite,Urine Negative (Negative); Protein,Urine Negative (Negative); Specific Gravity,Urine 1.018 (1.001-1.035); Squamous Epithelial Cell,Urine 1 /hpf (0-4); Urobilinogen,Urine <2.0 mg/dL (<2.0); WBC,Urine 2 /hpf (0-5)
[2021-01-06 23:39] LABS: Partial Thromboplastin Time 23.1 sec (22.0-30.0); Prothrombin Time 10.5 sec (9.0-12.0)
[2021-01-06 23:40] LABS: Albumin 4.9 g/dL (3.5-5.0); Calcium 10.6 mg/dL (8.4-10.2); Potassium 4.3 mmol/L (3.5-5.1); Total Bilirubin 0.5 mg/dL (0.2-1.3); Total Protein 7.9 g/dL (6.3-8.2)
[2021-01-06] MEDS ORDERED: SODIUM CHLORIDE 0.9% 500 ML 500 ML IV STA (23:46)
--- NOTE | 2021-01-06 23:52 | US ---
EXAMINATION TYPE: US gallbladder DATE OF EXAM: 01/06/2021 COMPARISON: NONE CLINICAL HISTORY: RUQ pain, vomiting. EXAM MEASUREMENTS: Liver Length: 13.4 cm Gallbladder Wall: 0.8 cm CBD: 0.3 cm Right Kidney: 11.2 x 4.1 x 5.1 cm Pancreas: wnl Liver: wnl Gallbladder: cholelithiasis, with wall thickening Evidence for sonographic Irving's sign: tenderness CBD: wnl Right Kidney: wnl IMPRESSION: Multiple gallstones with gallbladder wall thickening that is consistent with acute and chronic cholec ystitis. No dilated ducts.
[2021-01-07 00:21] VITALS: BP 139/79; PULSE 63; RESP 20
== END 2021-01-07 01:15 | disposition left against medical advice (07) ==
LOC: EC 22:32
DX: K81.2 Acute cholecystitis with chronic cholecystitis (principal); E78.5 Hyperlipidemia, unspecified; Z79.1 Long term (current) use of non-steroidal anti-inflammatories (NSAID); Z79.899 Other long term (current) drug therapy; Z88.0 Allergy status to penicillin
CPT/HCPCS: 36415; 93005; 80053; 82150; 83605; 83690; 85025; 85610; 85730; 81001; 76705; 99284; 96374; 96375; 96361; J2405; J1885

== ENCOUNTER → 2021-01-24 | Outpatient (CLI) | payer BC ==
--- NOTE | 2021-01-25 13:53 | US ---
EXAMINATION TYPE: US venous doppler duplex UE RT DATE OF EXAM: 01/24/2021 COMPARISON: NONE CLINICAL HISTORY: Right arm pain, medial M79.601. SIDE PERFORMED: Right Right Arm: Negative for DVT Superficial clot seen at elbow in basilic vein at patients area of pain. IMPRESSION: 1. Right upper extremity deep venous ultrasound negative for deep venous thrombosis. 2. Superficial venous thrombosis within the basilic vein at the area of the patient's pain is noted
== END | disposition home or self-care (01) ==
LOC: RADUSWWP 16:17
PROVIDERS: ATTEND Physician Assistant
DX: I82.811 Embolism and thrombosis of superficial veins of right lower extremity (principal)

== ENCOUNTER → 2021-01-31 | Outpatient (CLI) | payer BC ==
--- NOTE | 2021-01-31 12:33 | US ---
EXAMINATION TYPE: US venous doppler duplex UE RT DATE OF EXAM: 01/31/2021 COMPARISON: NONE CLINICAL HISTORY: M79.621 R arm pain, I82.611 superficial clot. SIDE PERFORMED: right Right arm scanned from internal jugular vein to radial and ulnar veins, negative for DVT. Right arm superficial thrombus seen in basilic from mid upper arm to mid forearm. IMPRESSION: 1. Right upper extremity ultrasound negative for deep venous thrombosis. 2. Note is made of superficial thrombus from the mid to upper arm
== END | disposition home or self-care (01) ==
LOC: RADUSWWP 10:18
PROVIDERS: ATTEND Family Medicine
DX: I82.611 Acute embolism and thrombosis of superficial veins of right upper extremity (principal)

== ENCOUNTER → 2021-02-14 | Outpatient (CLI) | payer BC ==
--- NOTE | 2021-02-14 11:38 | US ---
EXAMINATION TYPE: US venous doppler duplex UE RT DATE OF EXAM: 02/14/2021 COMPARISON: 01/31/2021 CLINICAL HISTORY: 50-year-old female I82.611 Acute embolism and thrombosis of superficial veins. Know n basilic thrombus, patient states palpable lumps are moving along arm. Newest lump on anterior mid f orearm. SIDE PERFORMED: Right TECHNIQUE: Grayscale, color doppler, spectral doppler imaging performed of the deep veins of the uppe r extremities. FINDINGS: Right Arm: Negative for DVT persisting basilic thrombus from lower anterior forearm up through mid upper arm, did not compress and demonstrates internal echoes, no color flow detected. IMPRESSION: Persistent occlusive SVT of the basilic vein. No evidence for DVT within the right upper extremity.
== END | disposition home or self-care (01) ==
LOC: RADUSWWP 10:04
PROVIDERS: ATTEND Family Medicine
DX: I82.611 Acute embolism and thrombosis of superficial veins of right upper extremity (principal)

== ENCOUNTER → 2021-07-25 | Outpatient (CLI) | payer BC ==
--- NOTE | 2021-07-26 09:36 | MM ---
Reason for exam: screening (asymptomatic). Last mammogram was performed 1 year ago. History: Patient is nulliparous. Family history of breast cancer in paternal aunt. Physical Findings: A clinical breast exam by your physician is recommended on an annual basis and results should be correlated with mammographic findings. MG 3D Screening Mammo W/Cad Bilateral CC and MLO view(s) were taken. Prior study comparison: July 19, 2020, bilateral MG 3d screening mammo w/cad. May 18, 2019, bilateral MG 3d screening mammo w/cad. The breast tissue is heterogeneously dense. This may lower the sensitivity of mammography. Stable benign calcifications. There is no discrete abnormality. No significant changes when compared with prior studies. ASSESSMENT: Benign, BI-RAD 2 RECOMMENDATION: Routine screening mammogram of both breasts in 1 year.
== END | disposition home or self-care (01) ==
LOC: RADMAMWWP 07:03
PROVIDERS: ATTEND Family Medicine
DX: Z12.31 Encounter for screening mammogram for malignant neoplasm of breast (principal)
CPT/HCPCS: 77063; 77067

== ENCOUNTER 2021-08-24 16:03 | Emergency (ER) | payer BC ==
[2021-08-24 17:08] LABS: Basophils % (A) 0 %; Eosinophils # (A) 0.2 k/uL (0-0.7); Eosinophils % (A) 2 %; HCT 44.4 % (34.0-46.0); HGB 15.3 gm/dL (11.4-16.0); Lymphocytes # (A) 0.7 k/uL (1.0-4.8); Lymphocytes % (A) 5 %; MCH 30.9 pg (25.0-35.0); MCHC 34.4 g/dL (31.0-37.0); Mean Platelet Volume 7.3; Monocytes # (A) 0.5 k/uL (0-1.0); Monocytes % (A) 4 %; Neutrophils # (A) 11.5 k/uL (1.3-7.7); Neutrophils % (A) 88 %; Platelet Count 387 k/uL (150-450); RBC 4.94 m/uL (3.80-5.40); RDW 13.8 % (11.5-15.5)
[2021-08-24 17:10] LABS: Appearance,Urine Cloudy (Clear); Bacteria,Urine Rare /hpf; Bilirubin,Urine 1+ (Negative); Blood,Urine Negative (Negative); Color,Urine Yellow; Glucose,Urine (UA) Negative (Negative); Ketones,Urine 1+ (Negative); Leukocyte Esterase,Urine Small (Negative); Mucus,Urine Rare /hpf; Nitrite,Urine Negative (Negative); PH, Urine 6.5 (5.0-8.0); Protein,Urine 1+ (Negative); RBC,Urine 1 /hpf (0-5); Specific Gravity,Urine 1.038 (1.001-1.035); Squamous Epithelial Cell,Urine 15 /hpf (0-4); WBC,Urine 4 /hpf (0-5)
[2021-08-24 17:11] LABS: MCV 89.9 fL (80.0-100.0)
[2021-08-24 17:18] LABS: Partial Thromboplastin Time 22.9 sec (22.0-30.0); Prothrombin Time 10.5 sec (9.0-12.0)
[2021-08-24 17:22] LABS: Albumin 4.4 g/dL (3.5-5.0); Calcium 9.8 mg/dL (8.4-10.2); Magnesium 1.8 mg/dL (1.6-2.3); Potassium 4.4 mmol/L (3.5-5.1); Total Bilirubin 0.6 mg/dL (0.2-1.3); Total Protein 7.4 g/dL (6.3-8.2)
--- NOTE | 2021-08-24 18:01 | CT ---
EXAMINATION TYPE: CT ChestAbdPelvis w con DATE OF EXAM: 08/24/2021 COMPARISON: 10/10/2020 HISTORY: Chest pain, back pain with nausea, vomiting and diarrhea. CT DLP: 1102.2 mGycm CONTRAST: CT scan of the chest, abdomen and pelvis is performed without Oral Contrast and with IV Contrast, pat ient injected with 100 mL of Isovue 300. CT Chest: LUNGS: The lungs are clear and free of infiltrate or atelectasis. No pulmonary nodule or mass is det ected. No pleural effusion or CT evidence of interstitial lung disease. MEDIASTINUM: Thoracic aorta is of normal caliber. The heart is not enlarged. No evidence for media stinal mass or adenopathy. HILAR STRUCTURES: No evidence for mass. No hilar adenopathy is appreciated. OTHER: No significant abnormality. CONTRAST CT ABDOMEN AND PELVIS FINDINGS: LIVER/GB: The gallbladder surgically absent. No space occupying hepatic lesion. Biliary tree is of no rmal caliber. PANCREAS: No inflammation. No distinct mass. SPLEEN: No splenic enlargement. No lesion seen. ADRENALS: No nodule. No thickening. KIDNEYS/BLADDER: No hydronephrosis. No nephrolithiasis. No distinct renal mass. BOWEL: Normal appendix. Normal bowel caliber. There is fluid distended colon with mild small bowel w all thickening. The findings are felt to infectious reflect enterocolitis. No free air or abscess see n. GENITAL ORGANS: No gross abnormality. LYMPH NODES: No greater than 1cm abdominal or pelvic lymph nodes are appreciated. AORTA: No significant abnormality. OSSEOUS STRUCTURES: Severe degenerative disc disease L5-S1. OTHER: No significant additional abnormality is seen. IMPRESSION: 1. There is fluid distended colon with mild small bowel wall thickening. The findings are felt to inf ectious reflect enterocolitis.
--- NOTE | 2021-08-24 18:33 | ED ---
General Adult HPI - General Chief complaint: Nausea/Vomiting/Diarrhea Stated complaint: vomiting/nausea/lower back pain Time Seen by Provider: 08/24/21 16:40 Source: patient, RN notes reviewed Mode of arrival: ambulatory Limitations: no limitations - History of Present Illness Initial comments: Patient is a 51-year-old female presenting to the emergency Department with concerns of lower back pain as well as nausea and vomiting that started earlier today. She states she had a quick chest pain right before she needed to vomit, no further chest pains. She denies any fevers or chills. She states pain is along her lower back, does not wrap around to the abdomen. She has no abdominal pain, no diarrhea. She denies any lightheadedness or dizziness, no shortness of breath, no cough or fatigue. Patient denies history of kidney stones. She has no further complaints. Her vitals are stable upon arrival. - Related Data Home Medications Medication Instructions Recorded Confirmed Fenofibrate 160 mg PO HS 06/02/17 08/25/21 Cholecalciferol [Vitamin D3 (25 1,000 unit PO HS 10/10/20 08/25/21 Mcg = 1000 Iu)] Cyanocobalamin (Vitamin B-12) 1,000 mcg PO HS 10/10/20 08/25/21 [Vitamin B-12] Acetaminophen Tab [Tylenol Tab] 1,000 mg PO Q6HR PRN 08/24/21 08/25/21 Allergies Allergy/AdvReac Type Severity Reaction Status Date / Time Penicillins Allergy Rash/Hives Verified 08/25/21 16:02 Sulfa (Sulfonamide Allergy Rash/Hives/ Verified 08/25/21 16:02 Antibiotics) Swelling Review of Systems ROS Statement: Those systems with pertinent positive or pertinent negative responses have been documented in the HPI. ROS Other: All systems not noted in ROS Statement are negative. Past Medical History Past Medical History: Hyperlipidemia History of Any Multi-Drug Resistant Organisms: None Reported Past Surgical History: Orthopedic Surgery Additional Past Surgical History / Comment(s): left shoulder Past Psychological History: No Psychological Hx Reported Smoking Status: Never smoker Past Alcohol Use History: None Reported Past Drug Use History: None Reported General Exam - General Exam Comments Initial Comments: GENERAL: Patient is well-developed and well-nourished. Patient is nontoxic and in mild distress. HEAD: Atraumatic, normocephalic. EYES: Pupils equal round and reactive to light, extraocular movements intact, sclera anicteric, conjunctiva are normal. Eyelids were unremarkable. ENT: Nares patent, oropharynx clear without exudates. Moist mucous membranes. NECK: Normal range of motion, supple without lymphadenopathy or JVD. LUNGS: Unlabored respirations. Breath sounds clear to auscultation bilaterally and equal. No wheezes rales or rhonchi. HEART: Regular rate and rhythm without murmurs, rubs or gallops. ABDOMEN: Soft, nontender, normoactive bowel sounds. No guarding, no rebound. No masses appreciated. MUSCULOSKELETAL: Normal extremities with adequate strength and normal range of motion, no pitting or edema. No clubbing or cyanosis. No pain on palpation of the lumbar spine. She has equal and normal bilateral lower extremity and upper extremity pulses. NEUROLOGICAL: Patient is alert and oriented x 3. Motor and sensory are also intact. Cranial nerves II through XII grossly intact. Symmetrical smile. Normal speech, normal gait. PSYCH: Normal mood, normal affect. SKIN: Warm, Dry, normal turgor, no rashes or lesions noted. Limitations: no limitations Course Vital Signs 08/24/21 08/24/21 08/24/21 16:05 18:35 19:42 Temperature 97.2 F L 98.9 F Pulse Rate 66 85 86 Respiratory 20 18 18 Rate Blood Pressure 91/60 132/64 125/66 O2 Sat by Pulse 98 100 96 Oximetry EKG Findings - EKG Comments: EKG Findings:: Normal sinus rhythm, normal ECG, similar to previous on 0 01/07/2021. Ventricular rate 76, MA interval 156, QT 394. Medical Decision Making - Medical Decision Making Patient is a 51-year-old female with history of hyperlipidemia, presenting with lower back pain nausea and vomiting started today. Labs reveal very slight white count at 13.0, rest of labs are unremarkable including normal troponin. Urinalysis shows no evidence of infection. I did do a CT of the chest and pelvis which reveals a fluid distended colon with mild small bowel wall thickening, could be enterocolitis. Patient initially refused any pain medications, however she did agree to morphine and some Zofran. She does report improvement in her symptoms. Patient is stable for discharge. I discussed these findings with her. Return parameters were discussed with her and she verbalized understanding. Case discussed with Dr. Lopes. - Lab Data Result diagrams: 08/24/21 16:56 08/24/21 16:56 Lab Results 08/24/21 08/24/21 08/24/21 Range/Units 16:56 16:56 16:56 WBC 13.0 H (3.8-10.6) k/uL RBC 4.94 (3.80-5.40) m/uL Hgb 15.3 (11.4-16.0) gm/dL Hct 44.4 (34.0-46.0) % MCV 89.9 D (80.0-100.0) fL MCH 30.9 (25.0-35.0) pg MCHC 34.4 (31.0-37.0) g/dL RDW 13.8 (11.5-15.5) % Plt Count 387 (150-450) k/uL MPV 7.3 Neutrophils % 88 % Lymphocytes % 5 % Monocytes % 4 % Eosinophils % 2 % Basophils % 0 % Neutrophils # 11.5 H (1.3-7.7) k/uL Lymphocytes # 0.7 L (1.0-4.8) k/uL Monocytes # 0.5 (0-1.0) k/uL Eosinophils # 0.2 (0-0.7) k/uL Basophils # 0.0 (0-0.2) k/uL PT 10.5 (9.0-12.0) sec INR 1.0 (<1.2) APTT 22.9 (22.0-30.0) sec Sodium 136 L (137-145) mmol/L Potassium 4.4 (3.5-5.1) mmol/L Chloride 104 (98-107) mmol/L Carbon Dioxide 23 (22-30) mmol/L Anion Gap 9 mmol/L BUN 19 H (7-17) mg/dL Creatinine 1.16 H (0.52-1.04) mg/dL Est GFR (CKD-EPI)AfAm 63 (>60 ml/min/1.73 sqM) Est GFR (CKD-EPI)NonAf 55 (>60 ml/min/1.73 sqM) Glucose 117 H (74-99) mg/dL Plasma Lactic Acid Ethan (0.7-2.0) mmol/L Calcium 9.8 (8.4-10.2) mg/dL Magnesium 1.8 (1.6-2.3) mg/dL Total Bilirubin 0.6 (0.2-1.3) mg/dL AST 48 H (14-36) U/L ALT 53 H (4-34) U/L Alkaline Phosphatase 47 (38-126) U/L Troponin I (0.000-0.034) ng/mL Total Protein 7.4 (6.3-8.2) g/dL Albumin 4.4 (3.5-5.0) g/dL Lipase 89 (23-300) U/L Urine Color Urine Appearance (Clear) Urine pH (5.0-8.0) Ur Specific [place] (1.001-1.035) Urine Protein (Negative) Urine Glucose (UA) (Negative) Urine Ketones (Negative) Urine Blood (Negative) Urine Nitrite (Negative) Urine Bilirubin (Negative) Urine Urobilinogen (<2.0) mg/dL Ur Leukocyte Esterase (Negative) Urine RBC (0-5) /hpf Urine WBC (0-5) /hpf Ur Squamous Epith Cells (0-4) /hpf Urine Bacteria (None) /hpf Urine Mucus (None) /hpf 08/24/21 08/24/21 08/24/21 Range/Units 16:56 16:56 16:56 WBC (3.8-10.6) k/uL RBC (3.80-5.40) m/uL Hgb (11.4-16.0) gm/dL Hct (34.0-46.0) % MCV (80.0-100.0) fL MCH (25.0-35.0) pg MCHC (31.0-37.0) g/dL RDW (11.5-15.5) % Plt Count (150-450) k/uL MPV Neutrophils % % Lymphocytes % % Monocytes % % Eosinophils % % Basophils % % Neutrophils # (1.3-7.7) k/uL Lymphocytes # (1.0-4.8) k/uL Monocytes # (0-1.0) k/uL Eosinophils # (0-0.7) k/uL Basophils # (0-0.2) k/uL PT (9.0-12.0) sec INR (<1.2) APTT (22.0-30.0) sec Sodium (137-145) mmol/L Potassium (3.5-5.1) mmol/L Chloride (98-107) mmol/L Carbon Dioxide (22-30) mmol/L Anion Gap mmol/L BUN (7-17) mg/dL Creatinine (0.52-1.04) mg/dL Est GFR (CKD-EPI)AfAm (>60 ml/min/1.73 sqM) Est GFR (CKD-EPI)NonAf (>60 ml/min/1.73 sqM) Glucose (74-99) mg/dL Plasma Lactic Acid Ethan 1.5 (0.7-2.0) mmol/L Calcium (8.4-10.2) mg/dL Magnesium (1.6-2.3) mg/dL Total Bilirubin (0.2-1.3) mg/dL AST (14-36) U/L ALT (4-34) U/L Alkaline Phosphatase (38-126) U/L Troponin I <0.012 (0.000-0.034) ng/mL Total Protein (6.3-8.2) g/dL Albumin (3.5-5.0) g/dL Lipase (23-300) U/L Urine Color Yellow Urine Appearance Cloudy H (Clear) Urine pH 6.5 (5.0-8.0) Ur Specific [place] 1.038 H (1.001-1.035) Urine Protein 1+ H (Negative) Urine Glucose (UA) Negative (Negative) Urine Ketones 1+ H (Negative) Urine Blood Negative (Negative) Urine Nitrite Negative (Negative) Urine Bilirubin 1+ H (Negative) Urine Urobilinogen 4.0 (<2.0) mg/dL Ur Leukocyte Esterase Small H (Negative) Urine RBC 1 (0-5) /hpf Urine WBC 4 (0-5) /hpf Ur Squamous Epith Cells 15 H (0-4) /hpf Urine Bacteria Rare H (None) /hpf Urine Mucus Rare H (None) /hpf Disposition Clinical Impression: Low back pain, Colitis, Nausea vomiting and diarrhea Disposition: HOME SELF-CARE Condition: Stable Instructions (If sedation given, give patient instructions): Colitis (ED) Additional Instructions: Please return to the Emergency Department if symptoms worsen or any other concerns. Continue to increase your fluids, may take Tylenol 3 for more severe pain, Zofran for any nausea. Follow-up with your primary care physician. Is patient prescribed a controlled substance at d/c from ED?: No Referrals: Gretchen Rogel MD [Primary Care Provider] - 1-2 days Time of Disposition: 19:35
[2021-08-24 18:36] VITALS: RESP 18
[2021-08-24] MEDS ORDERED: MORPHINE SULFATE 4 MG/ML SYRINGE IVP STA (18:48)
[2021-08-24] MEDS ORDERED: ONDANSETRON 4 MG/2 ML VIAL IVP STA (19:14)
[2021-08-24] MEDS ORDERED: ONDANSETRON 4 MG ODT STARTER PACK 2 TAB BTL PO STA (19:33)
[2021-08-24] MEDS ORDERED: ACET/COD 300 MG/30 MG STARTER PACK 6 TAB BTL PO STA (19:33)
[2021-08-24 19:45] VITALS: BP 125/66; PULSE 86; TEMP 98.9
== END 2021-08-24 19:48 | disposition home or self-care (01) ==
LOC: EC 16:03
DX: R10.84 Generalized abdominal pain (principal); R11.2 Nausea with vomiting, unspecified; M54.50 Low back pain, unspecified; Z88.0 Allergy status to penicillin; Z88.2 Allergy status to sulfonamides
CPT/HCPCS: 99284 ×2; 96374 ×2; 96375 ×2; 36415; 93005; 80053; 83605; 83690; 83735; 84484; 85025; 85610; 85730; 81001; 71260; 74177; J2270; J2405; S0119; Q9967

== ENCOUNTER 2021-08-25 15:45 | Observation (INO) | payer BC ==
[2021-08-25] MEDS ORDERED: ASPIRIN 81 MG PO STA (15:58)
[2021-08-25] MEDS ORDERED: NITROGLYCERIN OINT 1 INCH/GM PACKET TOPICAL STA (15:58)
--- NOTE | 2021-08-25 16:01 | ED ---
General Adult HPI - General Stated complaint: Chest pain Time Seen by Provider: 08/25/21 15:48 Source: patient, EMS, RN notes reviewed Mode of arrival: EMS Limitations: no limitations - History of Present Illness Initial comments: Patient is a pleasant 51-year-old female presenting to the emergency Department with complaints of chest discomfort. Onset of symptoms was around 45 minutes ago. Discomfort has improved is currently 2 or 3/10. Patient had aspirin by EMS with improvement of her symptoms. Patient states discomfort feels like an ache. Patient states she did have some sharp discomfort yesterday and did vomit at that time. No associated dyspnea. No diaphoresis. No history of similar symptoms previously. Patient does have a history of high cholesterol. - Related Data Home Medications Medication Instructions Recorded Confirmed Fenofibrate 160 mg PO HS 06/02/17 08/25/21 Cholecalciferol [Vitamin D3 (25 1,000 unit PO HS 10/10/20 08/25/21 Mcg = 1000 Iu)] Cyanocobalamin (Vitamin B-12) 1,000 mcg PO HS 10/10/20 08/25/21 [Vitamin B-12] Acetaminophen Tab [Tylenol Tab] 1,000 mg PO Q6HR PRN 08/24/21 08/25/21 Allergies Allergy/AdvReac Type Severity Reaction Status Date / Time Penicillins Allergy Rash/Hives Verified 08/25/21 16:02 Sulfa (Sulfonamide Allergy Rash/Hives/ Verified 08/25/21 16:02 Antibiotics) Swelling Review of Systems ROS Statement: Those systems with pertinent positive or pertinent negative responses have been documented in the HPI. ROS Other: All systems not noted in ROS Statement are negative. Constitutional: Denies: fever Eyes: Denies: eye pain ENT: Denies: ear pain Respiratory: Denies: cough Cardiovascular: Reports: as per HPI, chest pain Endocrine: Denies: fatigue Gastrointestinal: Denies: abdominal pain Genitourinary: Denies: dysuria Musculoskeletal: Denies: arthralgia Skin: Denies: rash Neurological: Denies: weakness Past Medical History Past Medical History: Hyperlipidemia History of Any Multi-Drug Resistant Organisms: None Reported Past Surgical History: Orthopedic Surgery Additional Past Surgical History / Comment(s): left shoulder Past Psychological History: No Psychological Hx Reported Smoking Status: Never smoker Past Alcohol Use History: None Reported Past Drug Use History: None Reported General Exam Limitations: no limitations General appearance: alert, in no apparent distress Head exam: Present: normocephalic Eye exam: Present: normal appearance Neck exam: Present: normal inspection Respiratory exam: Present: normal lung sounds bilaterally. Absent: chest wall tenderness Cardiovascular Exam: Present: regular rate, normal rhythm Expanded Peripheral pulses: 2+: Radial (R), Radial (L), Posterior Tibialis (R), Posterior Tibialis (L) GI/Abdominal exam: Present: soft. Absent: tenderness Extremities exam: Present: normal inspection. Absent: pedal edema, calf tenderness Neurological exam: Present: alert Psychiatric exam: Present: normal affect, normal mood Skin exam: Present: normal color Course Vital Signs 08/25/21 08/25/21 16:00 18:08 Temperature 97.8 F Pulse Rate 74 73 Respiratory 18 18 Rate Blood Pressure 140/84 128/80 O2 Sat by Pulse 98 97 Oximetry EKG Findings - EKG Comments: EKG Findings:: Normal sinus rhythm with rate of 71. IN 162. QRS 86. QT 406. QTc 441. Normal axis. Normla QRS. No acute ST change. Medical Decision Making - Medical Decision Making Patient reevaluated and now symptom-free. Patient updated on results and plan. COVID-19 test has been ordered secondary to mild changes seen on computed tomography scan. Patient be held for observation and repeat cardiac enzymes. - Lab Data Result diagrams: 08/25/21 16:11 08/25/21 16:11 Lab Results 08/25/21 08/25/21 08/25/21 Range/Units 16:11 16:11 16:11 WBC 6.9 (3.8-10.6) k/uL RBC 4.81 (3.80-5.40) m/uL Hgb 14.6 (11.4-16.0) gm/dL Hct 43.2 (34.0-46.0) % MCV 89.8 (80.0-100.0) fL MCH 30.4 (25.0-35.0) pg MCHC 33.8 (31.0-37.0) g/dL RDW 13.1 (11.5-15.5) % Plt Count 288 (150-450) k/uL MPV 6.7 Neutrophils % 74 % Lymphocytes % 16 % Monocytes % 7 % Eosinophils % 1 % Basophils % 0 % Neutrophils # 5.1 (1.3-7.7) k/uL Lymphocytes # 1.1 (1.0-4.8) k/uL Monocytes # 0.5 (0-1.0) k/uL Eosinophils # 0.1 (0-0.7) k/uL Basophils # 0.0 (0-0.2) k/uL PT 11.5 (9.0-12.0) sec INR 1.1 (<1.2) APTT 25.6 (22.0-30.0) sec D-Dimer 1.43 H (<0.60) mg/L FEU Sodium 133 L (137-145) mmol/L Potassium 3.7 (3.5-5.1) mmol/L Chloride 101 (98-107) mmol/L Carbon Dioxide 22 (22-30) mmol/L Anion Gap 10 mmol/L BUN 18 H (7-17) mg/dL Creatinine 1.18 H (0.52-1.04) mg/dL Est GFR (CKD-EPI)AfAm 62 (>60 ml/min/1.73 sqM) Est GFR (CKD-EPI)NonAf 54 (>60 ml/min/1.73 sqM) Glucose 117 H (74-99) mg/dL Calcium 9.3 (8.4-10.2) mg/dL Magnesium 1.9 (1.6-2.3) mg/dL Total Bilirubin 0.8 (0.2-1.3) mg/dL AST 58 H (14-36) U/L ALT 68 H (4-34) U/L Alkaline Phosphatase 43 (38-126) U/L Troponin I (0.000-0.034) ng/mL Total Protein 6.8 (6.3-8.2) g/dL Albumin 4.0 (3.5-5.0) g/dL 08/25/21 Range/Units 16:11 WBC (3.8-10.6) k/uL RBC (3.80-5.40) m/uL Hgb (11.4-16.0) gm/dL Hct (34.0-46.0) % MCV (80.0-100.0) fL MCH (25.0-35.0) pg MCHC (31.0-37.0) g/dL RDW (11.5-15.5) % Plt Count (150-450) k/uL MPV Neutrophils % % Lymphocytes % % Monocytes % % Eosinophils % % Basophils % % Neutrophils # (1.3-7.7) k/uL Lymphocytes # (1.0-4.8) k/uL Monocytes # (0-1.0) k/uL Eosinophils # (0-0.7) k/uL Basophils # (0-0.2) k/uL PT (9.0-12.0) sec INR (<1.2) APTT (22.0-30.0) sec D-Dimer (<0.60) mg/L FEU Sodium (137-145) mmol/L Potassium (3.5-5.1) mmol/L Chloride (98-107) mmol/L Carbon Dioxide (22-30) mmol/L Anion Gap mmol/L BUN (7-17) mg/dL Creatinine (0.52-1.04) mg/dL Est GFR (CKD-EPI)AfAm (>60 ml/min/1.73 sqM) Est GFR (CKD-EPI)NonAf (>60 ml/min/1.73 sqM) Glucose (74-99) mg/dL Calcium (8.4-10.2) mg/dL Magnesium (1.6-2.3) mg/dL Total Bilirubin (0.2-1.3) mg/dL AST (14-36) U/L ALT (4-34) U/L Alkaline Phosphatase (38-126) U/L Troponin I <0.012 (0.000-0.034) ng/mL Total Protein (6.3-8.2) g/dL Albumin (3.5-5.0) g/dL - Radiology Data Radiology results: report reviewed (CT angiogram shows no pulmonary embolism. Mild increased interstitial density.), image reviewed (Chest x-ray shows no acute process) Disposition Clinical Impression: Chest pain Disposition: ADMITTED IP TO THIS HOSP Is patient prescribed a controlled substance at d/c from ED?: No Referrals: Gretchen Rogel MD [Primary Care Provider] - 1-2 days Decision Time: 18:30
[2021-08-25 16:21] LABS: Basophils % (A) 0 %; Eosinophils # (A) 0.1 k/uL (0-0.7); Eosinophils % (A) 1 %; HCT 43.2 % (34.0-46.0); HGB 14.6 gm/dL (11.4-16.0); Lymphocytes # (A) 1.1 k/uL (1.0-4.8); Lymphocytes % (A) 16 %; MCH 30.4 pg (25.0-35.0); MCHC 33.8 g/dL (31.0-37.0); MCV 89.8 fL (80.0-100.0); Mean Platelet Volume 6.7; Monocytes # (A) 0.5 k/uL (0-1.0); Monocytes % (A) 7 %; Neutrophils # (A) 5.1 k/uL (1.3-7.7); Neutrophils % (A) 74 %; Platelet Count 288 k/uL (150-450); RBC 4.81 m/uL (3.80-5.40); RDW 13.1 % (11.5-15.5); WBC 6.9 k/uL (3.8-10.6)
[2021-08-25 16:30] LABS: Calcium 9.3 mg/dL (8.4-10.2); Magnesium 1.9 mg/dL (1.6-2.3); Potassium 3.7 mmol/L (3.5-5.1); Total Bilirubin 0.8 mg/dL (0.2-1.3); Total Protein 6.8 g/dL (6.3-8.2)
[2021-08-25 16:32] LABS: INR 1.1 (<1.2); Prothrombin Time 11.5 sec (9.0-12.0)
[2021-08-25 16:33] LABS: Partial Thromboplastin Time 25.6 sec (22.0-30.0)
--- NOTE | 2021-08-25 16:33 | XR ---
EXAMINATION TYPE: XR chest 2V DATE OF EXAM: 08/25/2021 COMPARISON: Chest x-ray 12/04/2017, CT of the abdomen and pelvis yesterday HISTORY: Chest pain TECHNIQUE: Frontal and lateral views of the chest are obtained. FINDINGS: There are overlying leads. Surgical clip noted in the right upper quadrant. There is no foc al air space opacity, pleural effusion, or pneumothorax seen. The cardiac silhouette size is within normal limits. The osseous structures are intact. IMPRESSION: No acute cardiopulmonary process.
[2021-08-25] MEDS ORDERED: SODIUM CHLORIDE 0.9% 1,000 ML IV STA (17:25)
--- NOTE | 2021-08-25 17:29 | P.HPIM ---
History of Present Illness H&P Date: 08/25/21 This is a 51-year-old female with past medical history significant for hypertriglyceridemia presented to the emergency room with chest pain. Patient said that her pain started all of a sudden today without exertion. She described the pain as heaviness and if like someone punched her in her chest. She rates her pain as 8 out of 10 in severity radiating to back. This is associated with shortness of breath or diaphoresis. Patient called EMS and was given aspirin in transfer. Patient said that her pain lasted approximately 40 minutes. She is currently chest pain-free. In the ER, 12-lead EKG showed no acute ischemic changes. Initial troponin was negative. Patient had elevated d- dimer and a CT angiogram was done and awaiting report. Patient will be placed in observation for further evaluation Review of Systems Review of system: 14 points review of systems were obtained and were negative except to what were mentioned in the HPI. Past Medical History Past Medical History: Hyperlipidemia History of Any Multi-Drug Resistant Organisms: None Reported Past Surgical History: Orthopedic Surgery Additional Past Surgical History / Comment(s): left shoulder Past Psychological History: No Psychological Hx Reported Smoking Status: Never smoker Past Alcohol Use History: None Reported Past Drug Use History: None Reported Medications and Allergies Home Medications Medication Instructions Recorded Confirmed Type Fenofibrate 160 mg PO HS 06/02/17 08/25/21 History Cholecalciferol [Vitamin D3 (25 1,000 unit PO HS 10/10/20 08/25/21 History Mcg = 1000 Iu)] Cyanocobalamin (Vitamin B-12) 1,000 mcg PO HS 10/10/20 08/25/21 History [Vitamin B-12] Acetaminophen Tab [Tylenol Tab] 1,000 mg PO Q6HR PRN 08/24/21 08/25/21 History Allergies Allergy/AdvReac Type Severity Reaction Status Date / Time Penicillins Allergy Rash/Hives Verified 08/25/21 16:02 Sulfa (Sulfonamide Allergy Rash/Hives/ Verified 08/25/21 16:02 Antibiotics) Swelling Physical Exam Vitals: Vital Signs Temp Pulse Resp BP Pulse Ox 08/25/21 16:00 97.8 F 74 18 140/84 98 Intake and Output 08/25/21 08/25/21 08/25/21 06:59 14:59 22:59 Other: Weight 81.647 kg General: The patient is awake and alert, in no distress Eye: there is normal conjunctiva bilaterally. Neck: The neck is supple, there is no JVD. Cardiovascular: Normal S1-S2, no S3-S4, no murmurs. Respiratory: Lungs clear to auscultation bilaterally Gastrointestinal: Abdomen is soft, nontender Musculoskeletal: There is no pedal edema. Neurological:. Speech is normal. Skin: Skin is warm and dry Results CBC & Chem 7: 08/25/21 16:11 08/25/21 16:11 Labs: Abnormal Lab Results - Last 24 Hours (Table) 08/25/21 08/25/21 Range/Units 16:11 16:11 D-Dimer 1.43 H (<0.60) mg/L FEU Sodium 133 L (137-145) mmol/L BUN 18 H (7-17) mg/dL Creatinine 1.18 H (0.52-1.04) mg/dL Glucose 117 H (74-99) mg/dL AST 58 H (14-36) U/L ALT 68 H (4-34) U/L Assessment and Plan Assessment: 1. Chest pain 2. Elevated d-dimer awaiting CT angiogram report 3. History of hypertriglyceridemia Patient will be placed in observation on cardiac monitor. Trend troponin. Continue supportive care otherwise. Rule out ACS. Patient is currently chest pain-free
[2021-08-25] MEDS ORDERED: ACETAMINOPHEN TAB 500 MG TAB PO PRN (17:31)
--- NOTE | 2021-08-25 17:46 | CT ---
EXAMINATION TYPE: CT angio chest DATE OF EXAM: 08/25/2021 COMPARISON: None HISTORY: Mid chest pain radiating to back. CT DLP: 254.1 mGycm Automated exposure control for dose reduction was used. CONTRAST: Performed with IV Contrast, patient injected with 80 mL of Isovue 370. Images obtained from the thoracic inlet to the diaphragm with IV contrast. There are 3-D post process ed images. There is some mild increased interstitial density in the lung perez bilaterally. There is no pulmona ry consolidation. Heart size is fairly normal. There is no pericardial effusion. There is no mediasti nal adenopathy. There are no hilar masses. There is normal contrast opacification of the pulmonary arteries. There are no filling defects. Ascen ding aorta measures 3.3 cm. There is no aneurysm or dissection. Thoracic spine is intact. There is no compression fracture. Sternum is intact. There is no pleural ef fusion. IMPRESSION: No evidence of pulmonary embolism. Pulmonary mild interstitial pneumonia.
[2021-08-25] MEDS ORDERED: NITROGLYCERIN SL TABS 0.4 MG TAB SUBLINGUAL PRN (18:32)
[2021-08-25] MEDS: CYANOCOBALAMIN 500 MCG TAB PO SCH (23:10)
[2021-08-25] MEDS: CHOLECALCIFEROL 25 MCG (1000 IU) TABLET PO SCH (23:10)
[2021-08-25] MEDS: FENOFIBRATE 160 MG TAB PO SCH (23:36)
[2021-08-26] MEDS: NITROGLYCERIN OINT 1 INCH/GM PACKET TOPICAL SCH ×2 (00:38→06:30)
[2021-08-26] MEDS ORDERED: ASPIRIN 325 MG TAB PO SCH (09:00)
--- NOTE | 2021-08-26 12:12 | P.CRDCN ---
History of Present Illness Consult date: 08/26/21 Requesting physician: Juan Manuel Singh Reason for Consult (text): cp Chief complaint: chest pain History of present illness: A pleasant 51-year-old female patient who was seen in the past by Dr. Armstrong and had a stress echocardiogram done for 5 years ago that was unremarkable. She has not followed up since that time. She has a history of hypertriglyceridemia and renal insufficiency. Initially came to the emergency department on 08/24/2021 with symptoms of sharp chest discomfort followed by vomiting with relief of her symptoms. She was discharged home at that time. Presented again yesterday. She apparently woke up and ate breakfast which was a bowl of oatmeal approximately 2 hours later she was sitting in a chair getting her hair done when she developed a pressure-like pain in her epigastric area that radiated up into her chest with some facial numbness. The pain was persistent lasting about an hour. According to the patient when EMS arrived her blood pressure was elevated with a diastolic blood pressure over 100. She was given 4 baby aspirin by EMS in route with relief of her symptoms within 10 minutes. Since that time she's been chest pain-free. Her evaluation normal CBC, sodium 133, BUN 18, creatinine 1.18 and troponin negative 3. D-dimer was elevated and she u nderwent CTA of the chest which showed no evidence of pulmonary embolism with pulmonary mild interstitial pneumonia. EKG on admission shows sinus mechanism with no ST-T wave abnormalities indicative of ischemia. Her vital signs have been stable since admission. Past Medical History Past Medical History: Hyperlipidemia Additional Past Medical History / Comment(s): allergy to her 4 cats, seeing kidney Dr for elevated labs History of Any Multi-Drug Resistant Organisms: None Reported Past Surgical History: Cholecystectomy, Orthopedic Surgery Additional Past Surgical History / Comment(s): left shoulder Past Anesthesia/Blood Transfusion Reactions: No Reported Reaction Past Psychological History: No Psychological Hx Reported Smoking Status: Never smoker Past Alcohol Use History: None Reported Past Drug Use History: None Reported - Past Family History Mother Family Medical History: No Reported History Medications and Allergies Home Medications Medication Instructions Recorded Confirmed Type Fenofibrate 160 mg PO HS 06/02/17 08/25/21 History Cholecalciferol [Vitamin D3 (25 1,000 unit PO HS 10/10/20 08/25/21 History Mcg = 1000 Iu)] Cyanocobalamin (Vitamin B-12) 1,000 mcg PO HS 10/10/20 08/25/21 History [Vitamin B-12] Acetaminophen Tab [Tylenol Tab] 1,000 mg PO Q6HR PRN 08/24/21 08/25/21 History Allergies Allergy/AdvReac Type Severity Reaction Status Date / Time Penicillins Allergy Rash/Hives Verified 08/25/21 16:02 Sulfa (Sulfonamide Allergy Rash/Hives/ Verified 08/25/21 16:02 Antibiotics) Swelling Physical Exam Vitals: Vital Signs Temp Pulse Pulse Resp BP BP Pulse Ox 08/26/21 08:00 71 16 08/26/21 07:00 98.3 F 71 16 105/65 97 08/26/21 02:00 98.2 F 65 15 135/68 98 08/25/21 21:15 98.1 F 71 16 144/80 100 08/25/21 19:30 97.7 F 75 18 130/77 99 08/25/21 19:00 68 18 125/58 98 08/25/21 18:08 73 18 128/80 97 08/25/21 16:00 97.8 F 74 18 140/84 98 Intake and Output 08/25/21 08/26/21 08/26/21 22:59 06:59 14:59 Intake Total 100 800 Balance 100 800 Intake: Intake, IV Titration 100 600 Amount Sodium Chloride 0.9% 1, 100 600 000 ml @ 100 mls/hr IV . Q10H STA Rx#:[id number] Oral 200 Other: # Voids 3 Weight 81.647 kg PHYSICAL EXAMINATION: This is a 51-year-old female in no apparent distress at the time of my examination. VITAL SIGNS: Blood pressure 105/65, heart rate 71, respirations 16, temp 98.3F. Patient is 97 % on room air. HEENT: Head is atraumatic, normocephalic. Pupils are equal, round. Sclerae anicteric. Conjunctivae are clear. Mucous membranes of the mouth are moist. Neck is supple. There is no elevated jugular venous pressure. No carotid bruit is heard. CHEST EXAMINATION: Clear to auscultation bilaterally. No wheezes rales or rhonchi. Respirations even and nonlabored. HEART EXAMINATION: Heart regular, positive S1 and S2. No S3. No S4. No clicks, rubs or murmurs. ABDOMEN: Soft, nontender. Bowel sounds are heard. No organomegaly noted. EXTREMITIES: 2+ peripheral pulses with no evidence of peripheral edema and no calf tenderness noted. NEUROLOGIC EXAMINATION: Patient is awake, alert and oriented x3. Results 08/25/21 16:11 08/25/21 16:11 Cardiac Enzymes 08/25/21 08/25/21 08/25/21 Range/Units 16:11 16:11 18:55 AST 58 H (14-36) U/L Troponin I <0.012 <0.012 (0.000-0.034) ng/mL 08/26/21 Range/Units 00:08 AST (14-36) U/L Troponin I <0.012 (0.000-0.034) ng/mL Coagulation 08/25/21 Range/Units 16:11 PT 11.5 (9.0-12.0) sec APTT 25.6 (22.0-30.0) sec CBC 08/25/21 Range/Units 16:11 WBC 6.9 (3.8-10.6) k/uL RBC 4.81 (3.80-5.40) m/uL Hgb 14.6 (11.4-16.0) gm/dL Hct 43.2 (34.0-46.0) % Plt Count 288 (150-450) k/uL Comprehensive Metabolic Panel 08/25/21 Range/Units 16:11 Sodium 133 L (137-145) mmol/L Potassium 3.7 (3.5-5.1) mmol/L Chloride 101 (98-107) mmol/L Carbon Dioxide 22 (22-30) mmol/L BUN 18 H (7-17) mg/dL Creatinine 1.18 H (0.52-1.04) mg/dL Glucose 117 H (74-99) mg/dL Calcium 9.3 (8.4-10.2) mg/dL AST 58 H (14-36) U/L ALT 68 H (4-34) U/L Alkaline Phosphatase 43 (38-126) U/L Total Protein 6.8 (6.3-8.2) g/dL Albumin 4.0 (3.5-5.0) g/dL Current Medications Generic Name Dose Route Start Last Admin Trade Name Freq PRN Reason Stop Dose Admin Acetaminophen 1,000 mg 08/25/21 17:31 Acetaminophen Tab 500 Mg Tab PO Q6HR PRN Pain or Fever > 100.5 Aspirin 81 mg 08/27/21 09:00 Aspirin 81 Mg PO DAILY NOLBERTO Cholecalciferol 25 mcg 08/25/21 21:00 08/25/21 23:10 Cholecalciferol 25 Mcg (1000 Iu) Tablet PO 25 mcg HS NOLBERTO Administration Cyanocobalamin 1,000 mcg 08/25/21 21:00 08/25/21 23:10 Cyanocobalamin 500 Mcg Tab PO 1,000 mcg HS NOLBERTO Administration Fenofibrate 160 mg 08/25/21 21:00 08/25/21 23:36 Fenofibrate 160 Mg Tab PO 160 mg HS NOLBERTO Administration Nitroglycerin 0.4 mg 08/25/21 18:32 Nitroglycerin Sl Tabs 0.4 Mg Tab SUBLINGUAL Q5M PRN Chest Pain Intake and Output 08/25/21 08/26/21 08/26/21 22:59 06:59 14:59 Intake Total 100 800 Balance 100 800 Intake: Intake, IV Titration 100 600 Amount Sodium Chloride 0.9% 1, 100 600 000 ml @ 100 mls/hr IV . Q10H STA Rx#:[id number] Oral 200 Other: # Voids 3 Weight 81.647 kg 08/25/21 16:11 08/25/21 16:11 Assessment and Plan Assessment: #1 symptoms of epigastric and atypical chest discomfort, acute coronary syndrome has been ruled out, plan 70 negative 3 and EKG shows no ischemic changes #2 hypertriglyceridemia #3 renal insufficiency Plan: From cardiology's perspective we'll obtain a 2-D echo with Doppler study to assess cardiac structure and function. If this shows no significant abnormalities patient may be discharged home and follow-up as an outpatient at which time she'll likely be scheduled for stress echocardiogram. PRIVATE BANKER note has been reviewed, I agree with a documented findings and plan of care. Patient was seen and examined.
[2021-08-26 13:01] LABS: African American GFR (CKD) 75.5 (60.0-200.0); Anion Gap 12.9 mmol/L (4.00-12.00); BUN/Creat Ratio 12.8 Ratio (12.00-20.00); Blood Urea Nitrogen 12.8 mg/dL (9.0-27.0); Calcium 8.4 mg/dL (8.7-10.3); Carbon Dioxide 19.1 mmol/L (21.6-31.8); Chol/HDL Ratio 4.39 Ratio; LDL Cholesterol,Calculated 64.6 mg/dL (0.0-131.0); Non-African American GFR(CKD) 65.2 (60.0-200.0); Potassium 3.9 mmol/L (3.5-5.5); VLDL Calculation 30.4 mg/dL (5.00-40.00)
--- NOTE | 2021-08-26 16:04 | P.PN ---
Subjective Patient is doing well today. Denies any chest pain. Objective - Vital Signs Vital signs: Vital Signs Temp 98.3 F 08/26/21 15:00 Pulse 69 08/26/21 15:00 Resp 18 08/26/21 15:00 BP 138/78 08/26/21 15:00 Pulse Ox 97 08/26/21 15:00 Intake & Output 08/25/21 08/26/21 08/26/21 18:59 06:59 18:59 Intake Total 900 Balance 900 Weight 81.647 kg 81.647 kg Intake: Intake, IV Titration 700 Amount Sodium Chloride 0.9% 1, 700 000 ml @ 100 mls/hr IV . Q10H STA Rx#:[id number] Oral 200 Other: # Voids 3 3 - Exam General: The patient is awake and alert, in no distress Eye: there is normal conjunctiva bilaterally. Neck: The neck is supple, there is no JVD. Cardiovascular: Normal S1-S2, no S3-S4, no murmurs. Respiratory: Lungs clear to auscultation bilaterally Gastrointestinal: Abdomen is soft, nontender Musculoskeletal: There is no pedal edema. Neurological:. Speech is normal. Skin: Skin is warm and dry - Labs CBC & Chem 7: 08/25/21 16:11 08/26/21 06:12 Labs: Abnormal Lab Results - Last 24 Hours (Table) 08/25/21 08/25/21 08/26/21 Range/Units 16:11 16:11 06:12 D-Dimer 1.43 H (<0.60) mg/L FEU Sodium 133 L (137-145) mmol/L Carbon Dioxide 19.1 L (21.6-31.8) mmol/L Anion Gap 12.90 H (4.00-12.00) mmol/L BUN 18 H (7-17) mg/dL Creatinine 1.18 H (0.52-1.04) mg/dL Glucose 117 H 115 H (74-99) mg/dL Calcium 8.4 L (8.7-10.3) mg/dL AST 58 H (14-36) U/L ALT 68 H (4-34) U/L Triglycerides 152.00 H (0.00-149.00) mg/dL HDL Cholesterol 28.00 L (40.00-60.00) mg/dL Assessment and Plan Assessment: 1. Chest pain 2. Elevated d-dimer: CT angiogram negative for PE 3. History of hypertriglyceridemia ACS ruled out. 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 Serial troponin are negative. Echocardiogram done and awaiting report. Awaiting cardiology clearance
--- NOTE | 2021-08-26 17:28 | ECHOF ---
Referral Reason:chest pain MEASUREMENTS -------- HEIGHT: 165.1 cm WEIGHT: 81.7 kg BP: RVIDd: 3.2 cm (< 3.3) IVSd: 1.1 cm (0.6 - 1.1) LVIDd: 4.0 cm (3.9 - 5.3) LVPWd: 1.1 cm (0.6 - 1.1) IVSs: 1.6 cm LVIDs: 2.9 cm LVPWs: 1.5 cm LAESV Index (A-L): 24.83 ml/m Ao Diam: 3.0 cm (2.0 - 3.7) AV Cusp: 2.0 cm (1.5 - 2.6) LA Diam: 3.3 cm (2.7 - 3.8) MV EXCURSION: 19.783 mm (> 18.000) MV EF SLOPE: 96 mm/s (70 - 150) EPSS: 0.3 cm MV E Barrett: 0.76 m/s MV DecT: 207 ms MV A Barrett: 0.63 m/s MV E/A Ratio: 1.20 RAP: 5.00 mmHg RVSP: 21.68 mmHg FINDINGS -------- Sinus rhythm. This was a technically adequate study. LV size, wall thickness and systolic function are normal, with an EF greater than 55%. The left mehran tricular size is normal. The diastolic filling pattern is normal for the age of the patient 10.68. The right ventricle is normal in size. Normal LA size by volume 22+/-6 ml/m2. The right atrial size is normal. The aortic valve is trileaflet, and appears structurally normal. No aortic stenosis or regurgitation. The mitral valve is normal. Mild mitral regurgitation is present. The tricuspid valve appears structurally normal. Mild tricuspid regurgitation present. Right vent ricular systolic pressure is normal at < 35 mmHg. There is no pulmonic regurgitation present. The aortic root size is normal. There is no pericardial effusion. CONCLUSIONS -------- 1. LV size, wall thickness and systolic function are normal, with an EF greater than 55%. 2. Normal LA size by volume 22+/-6 ml/m2. 3. The aortic valve is trileaflet, and appears structurally normal. No aortic stenosis or regurgitati on. 4. Mild mitral regurgitation is present. 5. Mild tricuspid regurgitation present. 6. There is no pericardial effusion. BUSINESS DEVELOPMENT CONSULTANT: Nguyen Cervantes RDCS
[2021-08-26] MEDS: CYANOCOBALAMIN 500 MCG TAB PO SCH (21:12)
[2021-08-26] MEDS: CHOLECALCIFEROL 25 MCG (1000 IU) TABLET PO SCH (21:12)
[2021-08-26] MEDS: FENOFIBRATE 160 MG TAB PO SCH (21:12)
[2021-08-27 08:05] VITALS: BP 150/86; PULSE 70; RESP 18; TEMP 98.3
[2021-08-27] MEDS ORDERED: CALCIUM CARBONATE 500 MG CHEWABLE PO PRN (08:10)
[2021-08-27] MEDS ORDERED: ASPIRIN 81 MG PO SCH (09:00)
--- NOTE | 2021-08-27 09:51 | P.DS ---
Providers Date of admission: 08/25/21 18:33 Expected date of discharge: 08/27/21 Attending physician: Juan Manuel Singh Consults: 08/25/21 18:33 Consult Physician Urgent Consulting Provider: Feliz Mccarthy Consult Reason/Comments: cp Do you want consulting provider notified?: Yes Primary care physician: Gretchen Rogel [facility] Course: This is a 51-year-old female with past medical history noted for hypertriglyceridemia that presented to the ER with chest pain. Patient was evaluated and placed on observation for further management of her medical problems noted below. 1. Chest pain 2. Elevated d-dimer: CT angiogram negative for PE 3. History of hypertriglyceridemia ACS ruled out. 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 Serial troponin are negative. Echocardiogram showed preserved ejection fraction with no significant valvular or wall motion abnormalities. Patient was seen and evaluated by cardiology. Plan for cardiac stress testing as an outpatient. Patient was cleared for discharge home. Physical exam: General: The patient is awake and alert, in no distress Eye: there is normal conjunctiva bilaterally. Neck: The neck is supple, there is no JVD. Cardiovascular: Normal S1-S2, no S3-S4, no murmurs. Respiratory: Lungs clear to auscultation bilaterally Gastrointestinal: Abdomen is soft, nontender Musculoskeletal: There is no pedal edema. Neurological:. Speech is normal. Skin: Skin is warm and dry Plan - Discharge Summary Discharge Rx Participant: Yes New Discharge Prescriptions: Continue Fenofibrate 160 mg PO HS Cholecalciferol [Vitamin D3 (25 Mcg = 1000 Iu)] 1,000 unit PO HS Cyanocobalamin (Vitamin B-12) [Vitamin B-12] 1,000 mcg PO HS Acetaminophen Tab [Tylenol] 1,000 mg PO Q6HR PRN PRN Reason: Pain Or Fever > 100.5 Discharge Medication List Fenofibrate 160 mg PO HS 06/02/17 [History] Cholecalciferol [Vitamin D3 (25 Mcg = 1000 Iu)] 1,000 unit PO HS 10/10/20 [History] Cyanocobalamin (Vitamin B-12) [Vitamin B-12] 1,000 mcg PO HS 10/10/20 [History] Acetaminophen Tab [Tylenol] 1,000 mg PO Q6HR PRN 08/24/21 [History] Follow up Appointment(s)/Referral(s): Gretchen Rogel MD [Primary Care Provider] - 1-2 days Discharge Disposition: HOME SELF-CARE
== END 2021-08-27 10:59 | disposition home or self-care (01) ==
LOC: EC 15:45 → 6NMEDSUR 18:33
PROVIDERS: ADMIT Internal Medicine; ATTEND Internal Medicine
DX: R07.89 Other chest pain (principal); R79.89 Other specified abnormal findings of blood chemistry; N28.9 Disorder of kidney and ureter, unspecified; J84.9 Interstitial pulmonary disease, unspecified; E78.1 Pure hyperglyceridemia; E78.5 Hyperlipidemia, unspecified; E78.00 Pure hypercholesterolemia, unspecified; R61 Generalized hyperhidrosis; R10.13 Epigastric pain; R20.0 Anesthesia of skin; R03.0 Elevated blood-pressure reading, without diagnosis of hypertension; R11.10 Vomiting, unspecified; Z20.822 Contact with and (suspected) exposure to COVID-19; Z79.899 Other long term (current) drug therapy; Z88.0 Allergy status to penicillin; Z88.2 Allergy status to sulfonamides; Z91.048 Other nonmedicinal substance allergy status; Z90.49 Acquired absence of other specified parts of digestive tract; Z98.890 Other specified postprocedural states
CPT/HCPCS: 96361 ×3; 96360; 99285; 36415; 93005; 93306; 85379; 80061; 80053; 80048; 83735; 84484 ×2; 85025; 85610; 85730; 87635; 71046; 71275; G0378 ×3; Q9967

== ENCOUNTER → 2021-10-17 | Outpatient (CLI) | payer BC ==
--- NOTE | 2021-10-17 15:42 | US ---
EXAMINATION TYPE: US kidneys/renal and bladder DATE OF EXAM: 10/17/2021 COMPARISON: US Renal 01/06/2018 CLINICAL HISTORY: N18.3 CKD Stage III. EXAM MEASUREMENTS: Right Kidney: 11.1 x 4.3 x 5.0 cm Left Kidney: 11.8 x 4.8 x 5.1 cm Right Kidney: No hydronephrosis or masses seen Left Kidney: Prominent pelvis Bladder: wnl Bilateral Jets seen: Yes There is no evidence for hydronephrosis at this point in time. No nephrolithiasis is seen. No thad s are identified. Cortical medullary differentiation is maintained. The urinary bladder is anechoic. Bilateral ureteral jets are seen. IMPRESSION: Kidney sizes as described
== END | disposition home or self-care (01) ==
LOC: RADUSWWP 14:16
PROVIDERS: ATTEND Internal Medicine
DX: N18.30 Chronic kidney disease, stage 3 unspecified (principal)
CPT/HCPCS: 76770

== ENCOUNTER → 2022-09-26 | Outpatient (CLI) | payer BC ==
--- NOTE | 2022-09-26 18:24 | MM ---
Reason for Exam: Screening (asymptomatic). Last mammogram was performed 1 year(s) and 2 month(s) ago. Patient History: Menarche at age 12. Patient has no children. Paternal aunt had breast cancer. Risk Values: Linda 5 year model risk: 1.2%. NCI Lifetime model risk: 9.6%. Prior Study Comparison: 02/10/2016 Screening Mammogram, [facility]. 08/03/2016 Screening Mammogram, [facility]. 09/24/2017 Screening Mammogram, [facility]. 05/18/2019 Bilateral Screening Mammogram, [facility]. 07/19/2020 Bilateral Screening Mammogram, [facility]. 07/25/2021 Bilateral Screening Mammogram, [facility]. Tissue Density: There are scattered fibroglandular densities. Findings: Analyzed By CAD. There is chronic bilateral nodularity. Some fluctuation on the left. Nodularity central left CC view at middle depth is more defined. No clear correlate on the MLO view. Benign etiologies such as a cyst is suggested. Six-month follow-up recommended to reassess. Otherwise, no significant change. Overall Assessment: Probably benign, BI-RAD 3 Management: Diagnostic Mammogram of the left breast in 6 months. 1. Patient should continue monthly self breast exams. 2. A clinical breast exam by your physician is recommended on an annual basis. 3. This exam should not preclude additional follow-up of suspicious palpable abnormalities. Electronically signed and approved by: See Haider M.D. Radiologist
== END | disposition home or self-care (01) ==
LOC: RADMAMWWP 06:52
PROVIDERS: ATTEND Student in an Organized Health Care Education/Training Program
DX: Z12.31 Encounter for screening mammogram for malignant neoplasm of breast (principal); Z80.3 Family history of malignant neoplasm of breast
CPT/HCPCS: 77063; 77067

== ENCOUNTER → 2023-04-02 | Outpatient (CLI) | payer BC ==
--- NOTE | 2023-04-02 08:40 | MM ---
Reason for Exam: Follow-up at short interval from prior study. Last screening mammogram was performed 7 month(s) ago. Patient History: Menarche at age 12. Patient has no children. Paternal aunt had breast cancer. Risk Values: Linda 5 year model risk: 1.2%. NCI Lifetime model risk: 9.6%. Prior Study Comparison: 07/19/2020 Bilateral Screening Mammogram, [facility]. 07/25/2021 Bilateral Screening Mammogram, [facility]. 09/26/2022 Bilateral MG 3D screening mammo w/cad, [facility]. Tissue Density: Left: There are scattered fibroglandular densities. Findings: Analyzed By CAD. Underlying chronic nodularity redemonstrated particularly on 3 images. 6 mm area of circumscribed nodularity centrally on the left cc view remains unchanged for 6 months. A benign etiology is favored. Reassess at ongoing short interval follow-up. Otherwise, no significant change. Overall Assessment: Probably benign, BI-RAD 3 Management: Diagnostic Mammogram of both breasts in 6 months. Total one-year follow-up left breast and annual exam of the right breast. Results were given to the patient verbally at the time of exam. Patient should continue monthly self-breast exams. A clinical breast exam by your physician is recommended on an annual basis. This exam should not preclude additional follow-up of suspicious palpable abnormalities. Note on Linda scores and lifetime risk: 1. A Linda score greater than 3% is considered moderate risk. If this is the case, consider specialist referral to assess eligibility for a risk reducing agent. 2. If overall lifetime risk for the development of breast cancer is 20% or higher, the patient may qualify for future screening with alternating mammogram and breast MRI. Electronically signed and approved by: See Haider M.D. Radiologist
== END | disposition home or self-care (01) ==
LOC: RADMAMWWP 08:15
PROVIDERS: ATTEND Student in an Organized Health Care Education/Training Program
DX: R92.8 Other abnormal and inconclusive findings on diagnostic imaging of breast (principal); Z80.3 Family history of malignant neoplasm of breast
CPT/HCPCS: 77061; 77065

== ENCOUNTER → 2023-12-24 | Outpatient (CLI) | payer BC ==
--- NOTE | 2023-12-24 11:11 | MM ---
Reason for Exam: Additional evaluation requested from abnormal screening. Last mammogram was performed 1 year(s) and 3 month(s) ago. Patient History: Menarche at age 12. Patient has no children. Paternal aunt had breast cancer. Risk Values: Linda 5 year model risk: 1.2%. NCI Lifetime model risk: 9.4%. Tissue Density: There are scattered fibroglandular densities. Findings: Analyzed By CAD. There is slight interval fluctuation and nodular appearing bilateral breast density. In particular, an area along the upper outer quadrant appears slightly more pronounced though similar to older priors. The previous asymmetry centrally on the CC view is much less pronounced. Otherwise, no significant change. Ongoing short interval follow-up recommended. Overall Assessment: Probably benign, BI-RAD 3 Management: Diagnostic Mammogram of the left breast in 6 months. . Results were given to the patient verbally at the time of exam. Patient should continue monthly self-breast exams. A clinical breast exam by your physician is recommended on an annual basis. This exam should not preclude additional follow-up of suspicious palpable abnormalities. Note on Linda scores and lifetime risk: 1. A Linda score greater than 3% is considered moderate risk. If this is the case, consider specialist referral to assess eligibility for a risk reducing agent. 2. If overall lifetime risk for the development of breast cancer is 20% or higher, the patient may qualify for future screening with alternating mammogram and breast MRI. Electronically signed and approved by: See Haider M.D. Radiologist
== END | disposition home or self-care (01) ==
LOC: RADMAMWWP 10:35
PROVIDERS: ATTEND Student in an Organized Health Care Education/Training Program
DX: R92.323 Mammographic fibroglandular density, bilateral breasts (principal); Z80.3 Family history of malignant neoplasm of breast
CPT/HCPCS: 77062; 77066

== ENCOUNTER → 2024-08-03 | Outpatient (CLI) | payer BC ==
--- NOTE | 2024-08-03 07:54 | MM ---
Reason for Exam: Follow-up at short interval from prior study. Last screening mammogram was performed 8 month(s) ago. Patient History: Menarche at age 12. Patient has no children. Perimenopausal. Paternal aunt had breast cancer, age 55. Last menstrual period: 07/12/2024 Risk Values: Linda 5 year model risk: 1.3%. NCI Lifetime model risk: 9.3%. Prior Study Comparison: 09/26/2022 Bilateral MG 3D screening mammo w/cad, [facility]. 04/02/2023 Left MG 3D diag mammo w/cad LT, [facility]. 12/24/2023 Bilateral MG 3D diag mammo w/cad LISA, [facility]. Tissue Density: Left: The breasts are heterogeneously dense, which may obscure small masses. Findings: Analyzed By CAD. 7 mm nodular density upper outer quadrant left breast approximately 5 cm from the nipple. Ultrasound is recommended. Overall Assessment: Incomplete: need additional imaging evaluation, BI-RAD 0 Management: Diagnostic Breast Ultrasound of the left breast. . Results were given to the patient verbally at the time of exam. Patient should continue monthly self-breast exams. A clinical breast exam by your physician is recommended on an annual basis. This exam should not preclude additional follow-up of suspicious palpable abnormalities. Note on Linda scores and lifetime risk: 1. A Linda score greater than 3% is considered moderate risk. If this is the case, consider specialist referral to assess eligibility for a risk reducing agent. 2. If overall lifetime risk for the development of breast cancer is 20% or higher, the patient may qualify for future screening with alternating mammogram and breast MRI. [facility], , 08/03/2024 7:45 AM. Electronically signed and approved by: Jose Jamison M.D. Radiologis
--- NOTE | 2024-08-03 10:07 | USB ---
Reason for Exam: Additional evaluation requested from abnormal screening. Patient History: Menarche at age 12. Patient has no children. Perimenopausal. Paternal aunt had breast cancer, age 55. Risk Values: Linda 5 year model risk: 1.3%. NCI Lifetime model risk: 9.3%. Technique: Method: Targeted. Prior Study Comparison: 09/26/2022 Bilateral MG 3D screening mammo w/cad, [facility]. 04/02/2023 Left MG 3D diag mammo w/cad LT, [facility]. 12/24/2023 Bilateral MG 3D diag mammo w/cad LISA, [facility]. Findings: The upper outer quadrant of the left breast, the axilla of the left breast and the retroareolar of the left breast were scanned. There are couple tiny cysts noted at the left 1:00 breast 5 cm from the nipple measuring 5 mm. There is also a small cyst at the left 2:00 position 5 cm from the nipple also measuring 5 mm. no solid masses seen. Overall Assessment: Benign, BI-RAD 2 Management: Screening Mammogram of both breasts in 1 year. A clinical breast exam by your physician is recommended on an annual basis and results should be correlated with mammographic findings. This exam should not preclude additional follow-up of suspicious palpable abnormalities. Results were given to the patient verbally at the time of exam. [facility], , 08/03/2024 10:04 AM. Electronically signed and approved by: Jose Jamison M.D. Radiologis
== END | disposition home or self-care (01) ==
LOC: RADMAMWWP 07:03
PROVIDERS: ATTEND Family Medicine
DX: R92.8 Other abnormal and inconclusive findings on diagnostic imaging of breast
CPT/HCPCS: 77061; 77065

== ENCOUNTER → 2024-11-17 | Outpatient (CLI) | payer BC ==
--- NOTE | 2024-11-17 08:30 | US ---
EXAMINATION TYPE: US abdomen complete DATE OF EXAM: 11/17/2024 COMPARISON: Ultrasound kidneys October 17, 2021. Whole body CT August 16, 2021 CLINICAL INDICATION: Female, 54 years old with history of N18.31 CHRONIC KIDNEY DISEASE, STAGE 3A; Ab normal labs. GB removed. TECHNIQUE: Grayscale and color Doppler imaging of the abdomen was performed. FINDINGS: EXAM MEASUREMENTS: Liver Length: 14.3 cm CBD: 0.4 cm, color Doppler imaging was utilized to isolate the common bile duct for measurement. Spleen: 10.5 cm Right Kidney: 10.9 x 5.2 x 5.4 cm Left Kidney: 12.3 x 4.7 x 4.6 cm Pancreas: Echogenic in appearance Liver: wnl, no dilated ducts, masses or cysts. Gallbladder: Surgically absent Evidence for sonographic Irving's sign: neg CBD: wnl Spleen: wnl Right Kidney: wnl, No hydronephrosis, calculi or masses seen Left Kidney: Dilated renal pelvis Upper IVC: wnl Abd Aorta: No AAA visualized at time of scan The liver is homogenous. The intrahepatic portion of the IVC and visualized abdominal aorta are with in normal limits. Gallbladder Is surgically absent. Common bile duct is unremarkable. The visualize d portions of the pancreas are homogenous. The spleen is unremarkable. Kidneys are symmetric and no rmal in size. Extrarenal pelvis on the left redemonstrated without calyceal dilatation. No right-side d hydronephrosis. No renal lesions are seen. IMPRESSION: No hydronephrosis is seen bilaterally. No significant change from most recent renal ultra sound. [facility], , 11/17/2024 8:28 AM
== END | disposition home or self-care (01) ==
LOC: RADUSWWP 07:25
PROVIDERS: ATTEND Internal Medicine
DX: N18.31 Chronic kidney disease, stage 3a (principal)
CPT/HCPCS: 76700

== ENCOUNTER 2025-01-22 17:00 | Emergency (ER) | payer OTHER, BC ==
[2025-01-22 17:39] VITALS: TEMP 98.4
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
[2025-01-22 19:00] VITALS: BP 143/89; PULSE 67; RESP 16
== END 2025-01-22 19:24 | disposition home or self-care (01) ==
LOC: EC 17:00
DX: S71.131A Puncture wound without foreign body, right thigh, initial encounter (principal); Z88.0 Allergy status to penicillin; Z88.2 Allergy status to sulfonamides; Z48.00 Encounter for change or removal of nonsurgical wound dressing; X58.XXXA Exposure to other specified factors, initial encounter
CPT/HCPCS: 99282

== ENCOUNTER 2025-04-02 13:32 | Emergency (ER) | payer BC ==
[2025-04-02 13:48] VITALS: RESP 18; TEMP 97.5
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
[2025-04-02 15:14] VITALS: BP 141/86; PULSE 80
== END 2025-04-02 15:13 | disposition home or self-care (01) ==
LOC: EC 13:32
DX: S60.041A Contusion of right ring finger without damage to nail, initial encounter (principal); Z88.0 Allergy status to penicillin; Z88.2 Allergy status to sulfonamides; W22.01XA Walked into wall, initial encounter
CPT/HCPCS: 99283